=== PATIENT | male | born 1965 | race Two or more races ===

== ENCOUNTER 2022-12-10 06:56 | Outpatient (REF) | payer OTHER, SELFPAY ==
[2022-12-10 07:09] LABS: MANUAL DIFF FLAG NO
[2022-12-10 07:27] LABS: Basophils Absolute Auto 0.1 X10*3/uL (0.0-0.2); Basophils Percent Auto 0.8 % (0-2); Eosinophils Absolute Auto 0.2 X10*3/uL (0.0-0.4); Eosinophils Percent Auto 2.6 % (0-4); Hematocrit 35.9 % (42.0-52.0); Hemoglobin 11.7 g/dl (14.0-18.0); Imm Gran Abs Auto 0.01 X10*3/uL (0.00-0.03); Imm Gran Pct Auto 0.2 % (0.0-0.4); Lymphocytes Absolute Auto 1.5 X10*3/uL (1.2-4.9); Lymphocytes Percent Auto 23.1 % (20-40); Mean Corpuscular HGB Conc 32.6 g/dl (31.0-36.0); Mean Corpuscular Hemoglobin 29.2 pg (27.0-33.0); Mean Corpuscular Volume 89.5 fL (80.0-98.0); Mean Platelet Volume 9.8 fL (9.4-12.4); Monocytes Absolute Auto 0.4 X10*3/uL (0.1-1.2); Monocytes Percent Auto 6.4 % (2-11); Neutrophils Absolute Auto 4.3 x10*3/uL (2.0-8.3); Neutrophils Percent Auto 66.9 % (45-73); Platelet Count 227 X10*3/uL (160-400); Red Blood Count 4.01 X10*6/uL (4.60-5.80); Red Cell Distribution Width 12.9 % (11.0-16.0); White Blood Count 6.4 X10*3/uL (4.8-10.8)
[2022-12-10 07:45] LABS: Estimated Average Glucose 171 mg/dL; Hemoglobin A1c % 7.6 %
[2022-12-10 08:15] LABS: PSA,Total (Free>4and<10) 0.47 ng/mL (0.00-4.00); TSH reflex Free T4 1.85 uIU/mL (0.32-4.0)
[2022-12-10 08:53] LABS: Creatinine Urine 198.81 mg/dL; Microalbum/Creatinine Ratio Ur 91.5 ug/mg cr
[2022-12-10 09:10] LABS: Alanine Aminotransferase 16 U/L (0-40); Albumin Level 4.3 g/dL (3.5-5.0); Alkaline Phosphatase 76 U/L (39-117); Anion Gap 15 (12-20); Aspartate Amino Transferase 21 U/L (5-37); Bilirubin Total 0.3 mg/dL (0.0-1.0); Blood Urea Nitrogen 31 mg/dL (9-16); Carbon Dioxide 20 mmol/L (22-29); Chloride 112 mmol/L (96-108); Cholesterol 194 mg/dL; Estimated Glomerular Filt Rate 45; Glucose Random 163 mg/dL (60-115); HDL Cholesterol 27 mg/dL; LDL Cholesterol Calculated 97 mg/dl; Sodium 141 mmol/L (135-145); Total Protein 6.9 g/dL (6.5-8.0); Triglycerides 353 mg/dL
[2022-12-10 09:25] LABS: Potassium 6.3 mmol/L (3.3-5.1)
== END 2022-12-10 06:57 | disposition home or self-care (01) ==
LOC: HO.LAB 06:56
PROVIDERS: PCP Internal Medicine; Visit Provider Internal Medicine
DX: E11.65 Type 2 diabetes mellitus with hyperglycemia (principal); E78.00 Pure hypercholesterolemia, unspecified; I10 Essential (primary) hypertension; D64.9 Anemia, unspecified; Z13.29 Encounter for screening for other suspected endocrine disorder; Z12.5 Encounter for screening for malignant neoplasm of prostate
CPT/HCPCS: 36415; 80053; 80061; 82043; 83036; 84153; 84443; 85025

== ENCOUNTER 2022-12-10 15:58 | Emergency (ER) | payer OTHER, SELFPAY ==
[2022-12-10 16:00] VITALS: BP 174/76; PULSE 98; RESP 18; TEMP 36.3; O2SAT 99; BMI 32.5
--- NOTE | 2022-12-10 16:00 | ED_ITS ---
HPI - General Adult General Chief complaint: Recheck/Abnormal Lab/Rx Stated complaint: Sent by for Potassium Time Seen by Provider: 12/10/22 16:40 Source: patient Mode of arrival: ambulatory Limitations: no limitations History of Present Illness HPI narrative: Patient is 57 years or with history of diabetes and hypertension and high cholesterol sent by the PCP for potassium of 6.3 in the labs done pre physical. Patient denies any complaints no urinary complaints no abdominal pain no nausea no vomiting no muscle cramps no palpitation Related Data Previous Rx's Medication Instructions Recorded blood-glucose meter (FreeStyle #1 ea 06/01/20 Lite Meter kit) gabapentin 300 mg capsule 300 mg PO TID #90 caps 05/09/22 glipizide 5 mg tablet, extended 5 mg PO DAILY 90 days #90 tabs 05/09/22 release 24 hr blood pressure monitor (Blood #1 ea 10/10/22 Pressure Kit) lisinopril 20 1 tab PO DAILY #30 tabs 10/10/22 mg-hydrochlorothiazide 12.5 mg tablet metformin 500 mg tablet 1,000 mg PO BID 90 days #360 tabs 10/20/22 Allergies Allergy/AdvReac Type Severity Reaction Status Date / Time Sulfa (Sulfonamide Allergy Unknown LIP Verified 12/10/22 16:09 Antibiotics) SWELLING [SULFA (SULFONAMIDE ANTIBIOTICS)] Review of Systems Review of Systems: Yes all other systems are reviewed and are negative PMFSH Past Medical History Medical History Diabetic neuropathy Hypercholesterolemia Obesity (BMI 30-39.9) Type 2 diabetes mellitus with hyperglycemia Surgical History History of cataract surgery Umbilical hernia Family History Family History Father Brain aneurysm Mother No problems noted. Brother No problems noted. Brother No problems noted. Sister No problems noted. Sister No problems noted. Sister Mental illness in member of household Son No problems noted. Son No problems noted. Daughter No problems noted. Other Mental health disorder Social History Social History Housing: House Alcohol intake: current Alcohol intake frequency: holidays/special occasions only Patient Tobacco Use Status: Never used Tobacco Smoked in Last 30 Days: No e-Cigarette/Vaping Use: Never Used Second Hand Smoke Exposure: No Use of substances other than those prescribed or required for medical reasons: No Advance Directives: No Advance Directives Information Provided: Yes service: No Cognitive needs: No Hearing needs: No Vision needs: No Physical Exam ED Vital Signs: Vital Signs - 24 hr 12/10/22 16:00 12/10/22 17:54 Temperature 97.3 F Pulse Rate 98 92 Respiratory Rate 18 15 Blood Pressure 174/76 H Pulse Oximetry 99 96 Oxygen Delivery Method Room Air Room Air BMI result Body Mass Index 32.5 Appearance: Alert. Oriented X3. No acute distress. Eyes: PERRLA, No Nystagmus ENT: Pharynx normal. Oral Mucosa moist Neck: Normal inspection. Neck supple. CVS: Normal heart rate and rhythm. Pulses normal. Respiratory: No respiratory distress. Equal air entry bilateral, no wheezing/rales/rhonchi Abdomen: Soft and nontender. Bowel sounds are present, no mass palpable, no CVA tenderness Skin: Skin warm and dry. Normal skin color. Normal skin turgor. Extremities: No lower extremity edema. No calf tenderness Neuro: Oriented X 3. No motor deficit. No sensory deficit.No cerebellar signs , cranial nerves II-XII intact Course Course Course Narrative: RME performed by Alise Sarmiento PA-C. Patient is a 57 year old assigned male at presenting to the emergency department with an elevated potassium. Patient's CBC and CMP were drawn today. Patient's CMP showed an eleavted potassium of 6.3. Patient states that he has been eating a lot of dark leafy green vegetables for months to help his diabetes. Patient placed back in the waiting room pending room availability and results. Medications Administered Discontinued Medications Generic Name Dose Route Start Last Admin Trade Name Freq PRN Reason Stop Dose Admin Sodium Chloride 1,000 mls @ 999 mls/hr 12/10/22 17:32 12/10/22 18:49 Ns IV 12/10/22 18:32 Infused .Q1H1M ONE Infusion Calcium Gluconate 1 gm in 50 mls @ 50 mls/hr 12/10/22 17:32 12/10/22 18:48 Calcium Gluconate IV 12/10/22 18:31 Infused ONCE ONE Infusion Sodium Zirconium Cyclosilicate 10 gm 12/10/22 17:32 12/10/22 17:48 Sodium Zirconium Cyclosilicate 10 Gm Powd.Pack PO 12/10/22 17:33 10 gm ONCE ONE Administration Medical Decision Making Medical Decision Making [facility] Narrative: Patient with slightly elevated BUN/creatinine and potassium without any EKG changes on metformin and glipizide for diabetes and lisinopril with hydrochlorothiazide for blood pressure previous labs were done 2 years ago at that time kidney function were stable with creatinine of 1.18. Patient will be seeing his PCP in 2 days advised to stop metformin for now given dose of glipizide and follow-up with PCP Lab Data [facility] Lab Attestation statement: I reviewed the patient's lab results. 12/10/22 16:25 12/10/22 16:25 Labs: Lab Results 12/10/22 12/10/22 Range/Units 16:25 16:25 WBC 5.1 (4.8-10.8) X10*3/uL RBC 3.85 L (4.60-5.80) X10*6/uL Hgb 11.3 L (14.0-18.0) g/dl Hct 33.9 L (42.0-52.0) % MCV 88.1 (80.0-98.0) fL MCH 29.4 (27.0-33.0) pg MCHC 33.3 (31.0-36.0) g/dl RDW 13.0 (11.0-16.0) % Plt Count 210 (160-400) X10*3/uL MPV 9.7 (9.4-12.4) fL Immature Gran % (Auto) 0.2 (0.0-0.4) % Neut % (Auto) 67.1 (45-73) % Lymph % (Auto) 23.2 (20-40) % Rock % (Auto) 6.3 (2-11) % Eos % (Auto) 2.2 (0-4) % Baso % (Auto) 1.0 (0-2) % Lymph # (Auto) 1.2 (1.2-4.9) X10*3/uL Rock # (Auto) 0.3 (0.1-1.2) X10*3/uL Eos # (Auto) 0.1 (0.0-0.4) X10*3/uL Baso # (Auto) 0.1 (0.0-0.2) X10*3/uL Abs Immat Gran (auto) 0.01 (0.00-0.03) X10*3/uL Absolute Neuts (auto) 3.4 (2.0-8.3) x10*3/uL Absolute Nucleated RBC 0.000 (0.0-0.012) X10*3/uL Nucleated RBC % (auto) 0.0 (0.0-0.2) /100WBC Sodium 140 (135-145) mmol/L Potassium 5.6 H (3.3-5.1) mmol/L Chloride 112 H (96-108) mmol/L Carbon Dioxide 21 L (22-29) mmol/L Anion Gap 13 (12-20) BUN 30 H (9-16) mg/dL Creatinine 1.53 H (0.5-1.4) mg/dL Estim Creat Clear Calc 65.4 Estimated GFR 47 Random Glucose 122 H (60-115) mg/dL Calcium 9.2 (8.4-10.2) mg/dL Magnesium 1.9 (1.6-2.6) mg/dL Total Bilirubin 0.3 (0.0-1.0) mg/dL AST 15 (5-37) U/L ALT 16 (0-40) U/L Alkaline Phosphatase 66 (39-117) U/L Total Protein 7.1 (6.5-8.0) g/dL Albumin 4.6 (3.5-5.0) g/dL Independent Interpretation Interpretation: Normal sinus rhythm left axis deviation heart rate 93 beats per minute acute ST wave changes no acute ischemic Discharge Plan Discharge Clinical Impression: Acute hyperkalemia, Acute renal failure superimposed on chronic kidney disease Patient Disposition: Home, Self-Care Instructions: Acute Kidney Injury (DC), Chronic Kidney Disease (ED) Additional Instructions: Drink plenty of fluids Avoid banana/orange juice or any food containing high potassium Stop metformin as the kidneys are weak at this time Increase the dose of glipizide 10 mg daily Follow-up with your PCP in 2 days to recheck your potassium Prescriptions: No Action metformin 500 mg tablet 1,000 mg PO BID 90 Days Qty: 360 1RF (DME) blood-glucose meter [FreeStyle Lite Meter] Kit See Rx Instructions .ROUTE .MEDSUPPLY Qty: 1 0RF Rx Instructions: As directed check the BS QD lisinopril-hydrochlorothiazide 20-12.5 mg tablet 1 tab PO DAILY Qty: 30 4RF (DME) blood pressure monitor [Blood Pressure Kit] Kit See Rx Instructions .ROUTE .MEDSUPPLY Qty: 1 0RF Rx Instructions: As directed gabapentin 300 mg capsule 300 mg PO TID Qty: 90 3RF glipizide 5 mg tablet extended release 24hr 5 mg PO DAILY 90 Days Qty: 90 2RF
--- NOTE | 2022-12-10 16:03 | ECG_ITS ---
Test Reason : elevated potassium Blood Pressure : / mmHG Vent. Rate : 093 BPM Atrial Rate : 093 BPM P-R Int : 154 ms QRS Dur : 078 ms QT Int : 338 ms P-R-T Axes : 015 -48 014 degrees QTc Int : 420 ms Normal sinus rhythm Left axis deviation Inferior infarct (cited on or before 05-OCT-2018) Anterolateral infarct , age undetermined Abnormal ECG When compared with ECG of 08-OCT-2018 11:27, Anterolateral infarct is now Present Referred By: Alise Sarmiento Electronically Signed By:Lamonte Hughes
--- NOTE | 2022-12-10 16:24 | PC.NURSE ---
pt comes to ER after having blood work this morning. Office advised him to come to ER bc elevated K. IV inserted, labs drawn, cardiac shubham on. NO pain or distress. Pt AOX3, will CTM
[2022-12-10 16:29] LABS: MANUAL DIFF FLAG NO
[2022-12-10 16:32] LABS: Basophils Absolute Auto 0.1 X10*3/uL (0.0-0.2); Eosinophils Absolute Auto 0.1 X10*3/uL (0.0-0.4); Eosinophils Percent Auto 2.2 % (0-4); Hematocrit 33.9 % (42.0-52.0); Hemoglobin 11.3 g/dl (14.0-18.0); Imm Gran Abs Auto 0.01 X10*3/uL (0.00-0.03); Imm Gran Pct Auto 0.2 % (0.0-0.4); Lymphocytes Absolute Auto 1.2 X10*3/uL (1.2-4.9); Lymphocytes Percent Auto 23.2 % (20-40); Mean Corpuscular HGB Conc 33.3 g/dl (31.0-36.0); Mean Corpuscular Hemoglobin 29.4 pg (27.0-33.0); Mean Corpuscular Volume 88.1 fL (80.0-98.0); Mean Platelet Volume 9.7 fL (9.4-12.4); Monocytes Absolute Auto 0.3 X10*3/uL (0.1-1.2); Monocytes Percent Auto 6.3 % (2-11); Neutrophils Absolute Auto 3.4 x10*3/uL (2.0-8.3); Neutrophils Percent Auto 67.1 % (45-73); Platelet Count 210 X10*3/uL (160-400); Red Blood Count 3.85 X10*6/uL (4.60-5.80); White Blood Count 5.1 X10*3/uL (4.8-10.8)
[2022-12-10 16:53] LABS: Alanine Aminotransferase 16 U/L (0-40); Albumin Level 4.6 g/dL (3.5-5.0); Alkaline Phosphatase 66 U/L (39-117); Anion Gap 13 (12-20); Aspartate Amino Transferase 15 U/L (5-37); Bilirubin Total 0.3 mg/dL (0.0-1.0); Blood Urea Nitrogen 30 mg/dL (9-16); Calcium 9.2 mg/dL (8.4-10.2); Carbon Dioxide 21 mmol/L (22-29); Chloride 112 mmol/L (96-108); Creatinine Clr Calc Pharmacy 65.4; Estimated Glomerular Filt Rate 47; Glucose Random 122 mg/dL (60-115); Magnesium 1.9 mg/dL (1.6-2.6); Potassium 5.6 mmol/L (3.3-5.1); Sodium 140 mmol/L (135-145); Total Protein 7.1 g/dL (6.5-8.0)
[2022-12-10] MEDS: Calcium Gluconate/NaCl,Iso-Osm 1 GM/50 ML PLAST..BAG IV (17:48)
[2022-12-10] MEDS: Sodium Zirconium Cyclosilicate 10 GM POWD.PACK PO (17:48)
[2022-12-10] MEDS: 0.9 % Sodium Chloride 1,000 ML 999 ML IV (17:48)
--- NOTE | 2022-12-10 17:53 | PC.NURSE ---
medicated per SEP. NSR on monitor.
[2022-12-10 17:54] VITALS: PULSE 92; RESP 15; O2SAT 96
== END 2022-12-10 19:24 | disposition home or self-care (01) ==
PROVIDERS: Physician Assistant Medical; Emergency Provider Internal Medicine; PCP Internal Medicine
DX: E87.5 Hyperkalemia (principal); E11.22 Type 2 diabetes mellitus with diabetic chronic kidney disease; I12.9 Hypertensive chronic kidney disease with stage 1 through stage 4 chronic kidney disease, or unspecified chronic kidney disease; N18.9 Chronic kidney disease, unspecified; N17.9 Acute kidney failure, unspecified
CPT/HCPCS: 36415; 80053; 83735; 85025; 93005; 96361; 96365; 99284; 99285; J0613

== ENCOUNTER 2022-12-31 06:59 | Outpatient (REF) | payer OTHER, SELFPAY ==
[2022-12-31 08:26] LABS: Alanine Aminotransferase 13 U/L (0-40); Albumin Level 4.4 g/dL (3.5-5.0); Alkaline Phosphatase 77 U/L (39-117); Anion Gap 15 (12-20); Aspartate Amino Transferase 13 U/L (5-37); Bilirubin Total 0.4 mg/dL (0.0-1.0); Blood Urea Nitrogen 23 mg/dL (9-16); Calcium 9.5 mg/dL (8.4-10.2); Carbon Dioxide 24 mmol/L (22-29); Chloride 107 mmol/L (96-108); Estimated Glomerular Filt Rate 47; Glucose Random 175 mg/dL (60-115); Potassium 5.7 mmol/L (3.3-5.1); Sodium 140 mmol/L (135-145); Total Protein 7.2 g/dL (6.5-8.0)
[2022-12-31 08:48] LABS: Creatinine Urine 201.64 mg/dL
== END 2022-12-31 07:00 | disposition home or self-care (01) ==
LOC: HO.LAB 06:59
PROVIDERS: PCP Internal Medicine; Visit Provider Internal Medicine
DX: E11.65 Type 2 diabetes mellitus with hyperglycemia (principal); E87.5 Hyperkalemia
CPT/HCPCS: 36415; 80053

== ENCOUNTER 2023-04-11 11:38 | Outpatient (AMB) | payer OTHER, SELFPAY ==
[2023-04-11 11:39] VITALS: BP 160/86; PULSE 100; O2SAT 100; BMI 30.6
--- NOTE | 2023-04-11 11:39 | A.OFFPC_ITS ---
Vital Signs 04/11/23 11:39 Height 5 ft 10 in Weight 213 lb BMI 30.6 BP 160/86 H Blood Pressure Location Lt brachial Position Sitting Pulse 100 Pulse Source Pulse Oximeter Temp Source Skin Pulse Oximetry (%) 100 Oxygen Delivery Method Room Air Intake Visit Reasons: DM , HTN , CKD Allergies Sulfa (Sulfonamide Antibiotics) [SULFA (SULFONAMIDE ANTIBIOTICS)] Allergy (Unknown, Verified 04/11/23 11:39) LIP SWELLING Lisinopril Adverse Reaction (Intermediate, Uncoded 04/11/23 11:39) Hyperkalemia Tobacco use date assessed: 04/11/23 Dental Screening Dental Screen Date: 04/11/23 Did you have a dental visit in the last 12 months?: No Did you have a dental problem in the last 6 months where you did not have access to dental care?: No HPI DM , HTN , CKD HPI Details 58-year-old obese male with diabetes eula litus hypercholesterolemia chronic kidney disease and hypertension last seen in January 2023. Eye exam from [place] [facility] seen. cold - gettng better 3 days ago. no pain on swallowing [facility] Medical History Diabetic neuropathy Hypercholesterolemia Obesity (BMI 30-39.9) Type 2 diabetes mellitus with hyperglycemia Surgical History History of cataract surgery Umbilical hernia Family History Father Brain aneurysm Mother No problems noted. Brother No problems noted. Brother No problems noted. Sister No problems noted. Sister No problems noted. Sister Mental illness in member of household Son No problems noted. Son No problems noted. Daughter No problems noted. Other Mental health disorder Social History Housing: House Alcohol intake: current Alcohol intake frequency: holidays/special occasions only Patient Tobacco Use Status: Never used Tobacco e-Cigarette/Vaping Use: Never Used Second Hand Smoke Exposure: No service: No Cognitive needs: No Hearing needs: No Vision needs: No Questionnaire Thrive Questionnaire Date Thrive assessed: 10/10/22 AUDIT C Alcohol Use Questionnaire (AUDIT-C) 1. How often do you have a drink containing alcohol?: Monthly or less 2. How many drinks containing alcohol do you have on a typical day when you are drinking?: 1 or 2 3. How often do you have six or more drinks on one occasion?: Never Total Score: 1 KERI-7 AMB Questionnaire KERI-7 Date KERI - 7 assessed: 10/10/22 Feeling nervous, anxious, or on edge: 0 = Not at all Not being able to stop or control worryin = Not at all Worrying too much about different things: 0 = Not at all Trouble relaxin = Not at all Being so restless that it is hard to sit still: 0 = Not at all Becoming easily annoyed or irritable: 0 = Not at all Feeling afraid as if something awful might happen: 0 = Not at all Total KERI-7 score (0-4 normal; 5-9 mild; 10-14 moderate; 15-21 severe): 0 Source: Developed by Drs. Anil Ruby, Lucille Hyatt, Luis Wilkins and colleagues, with an educational yevgeniy from [employer]. Physical exam (Primary Care) Vital Signs: Last Vital Signs Pulse 100 04/11/23 11:39 BP 160/86 H 04/11/23 11:39 Pulse Ox 100 04/11/23 11:39 Oxygen Delivery Method Room Air 04/11/23 11:39 BMI result Body Mass Index 30.6 Tobacco/Smoking Status: Tobacco use Status Tobacco use date assessed 04/11/23 04/11/23 11:40 Patient Tobacco Use Status Never used Tobacco 04/11/23 11:40 e-Cigarette/Vaping Use Never Used 04/11/23 11:40 Thrive Assessment: Date of Thrive Assessment Date Thrive assessed 10/10/22 04/11/23 11:40 Const General: alert; No acute distress Eyes Conjunctivae: conjunctivae normal Resp Auscultation: clear to auscultation bilaterally Cardio Rate: regular rate Rhythm: regular rhythm GI Inspection: Yes normal to inspection Extrem General: Yes normal to inspection and No edema Results AMB Hemoglobin A1c AMB Hemoglobin A1c 6.7 % Last Edit by HALLE Gonzalez on 04/11/23 11:58 Results Reviewed Results Reviewed: Laboratory Last Values Hgb A1c (Clinic) 6.7 % (4.0-6.0) H 04/11/23 11:41 Assessment and Plan Assessment & Plan (1) Type 2 diabetes mellitus with hyperglycemia: Comment: Breanna Code(s): E11.65 - Type 2 diabetes mellitus with hyperglycemia Qualifiers: Diabetes mellitus terminal carman insulin use: without chcf use Qualified Code(s): E11.65 - Type 2 diabetes mellitus with hyperglycemia Plan: Decrease the amount of carbohydrate intake, pasta, bread, rice and potatoes are all sugar and that is aside from all the sweet stuff, remember that fruits are good but they are Sweet also. Patient is presently on glipizide 5 mg once a day and metformin 1000 twice a day LDL goal of less than 6.5. increase glipizide (2) Hypercholesterolemia: Code(s): E78.00 - Pure hypercholesterolemia, unspecified Plan: Avoid fried foods, chicken skin, eggs, butter margarine, pastries and meat. Be it pork or beef they have a lot of cholesterol LDL goal of less than 100 and triglyceride less than 150 November 2022 last blood work. repeat testing as he has high Trigly (3) Obesity (BMI 30-39.9): Code(s): E66.9 - Obesity, unspecified Plan: Diet and exercise (4) Anemia: Code(s): D64.9 - Anemia, unspecified Qualifiers: Anemia type: unspecified type Qualified Code(s): D64.9 - Anemia, unspecified Plan: Due to chronic kidney disease patient has the anemia continuing to monitor (5) Chronic kidney disease: Code(s): N18.9 - Chronic kidney disease, unspecified Plan: Patient has been referred to Nephrology- 04/2023 (6) Hypertension: Code(s): I10 - Essential (primary) hypertension Plan: Continue with blood pressure medication. Decrease salt intake and exercise on amlodipine 5 mg once a day and hydrochlorothiazide 12.5 mg once a day cannot take an Suresh inhibitor. Due to hyperkalemia. increase amlodipine. will be seeing dailyherve next month (7) Colon cancer screening: Code(s): Z12.11 - Encounter for screening for malignant neoplasm of colon Plan: referral done to GI Orders: Orders AMB Hemoglobin A1c Today E11.65 - Type 2 diabetes mellitus with hyperglycemia Lipid Panel 3 Months E78.00 - Pure hypercholesterolemia, unspecified, E78.1 - Pure hyperglyceridemia Comprehensive Met. Panel 3 Months E78.1 - Pure hyperglyceridemia Hemoglobin A1c 3 Months E78.1 - Pure hyperglyceridemia Referrals Gastroenterology Referral Z12.11 - Encounter for screening for malignant neoplasm of colon Medications: New blood pressure monitor (Blood Pressure Kit) As directed 1 ea 0RF I10 - Essential (primary) hypertension Changed From glipizide ER 5 mg PO DAILY 90 days 90 tabs 2RF E11.65 - Type 2 diabetes mellitus with hyperglycemia To glipizide ER 5 mg PO BID 90 days 180 tabs 2RF E11.65 - Type 2 diabetes mellitus with hyperglycemia From amlodipine 5 mg PO DAILY 90 tabs 3RF I10 - Essential (primary) hypertension To amlodipine 10 mg PO DAILY 30 tabs 3RF I10 - Essential (primary) hypertension Coding Level of Care Code Est Pt Level 4 (25128) Diagnoses Type 2 diabetes mellitus with hyperglycemia, without long-term current use of insulin E11.65 Diabetes mellitus terminal carman insulin use: without chcf use Hypercholesterolemia E78.00 Obesity (BMI 30-39.9) E66.9 Anemia, unspecified type D64.9 Anemia type: unspecified type Chronic kidney disease N18.9 Hypertension I10 Colon cancer screening Z12.11
== END 2023-04-11 12:32 | disposition home or self-care (01) ==
PROVIDERS: PCP Internal Medicine; Visit Provider Internal Medicine
DX: E11.65 Type 2 diabetes mellitus with hyperglycemia (principal); I12.9 Hypertensive chronic kidney disease with stage 1 through stage 4 chronic kidney disease, or unspecified chronic kidney disease; N18.9 Chronic kidney disease, unspecified; Z68.30 Body mass index [BMI] 30.0-30.9, adult; E78.00 Pure hypercholesterolemia, unspecified; E66.9 Obesity, unspecified; D64.9 Anemia, unspecified
CPT/HCPCS: 83036; 99214

== ENCOUNTER 2023-05-08 19:12 | Emergency (ER) | payer OTHER, SELFPAY ==
--- NOTE | ~2023-05-08 | XR_ITS ---
EXAMINATION: XR KNEE, LEFT CLINICAL INFORMATION: Erythema and swelling. COMPARISON: None available. TECHNIQUE: AP, lateral, and both oblique views of the left knee. FINDINGS: Bony alignment and mineralization are normal. The lateral, medial and patellofemoral joint space compartments are well-maintained. No fracture or dislocation is seen. There is a small joint effusion. No foreign body is seen. XR/XR knee LT 4V IMPRESSION: 1. No left knee fracture, dislocation or unusual degenerative change is seen. 2. There is a small left knee joint effusion.
[2023-05-08 19:42] VITALS: BP 165/81; PULSE 104; RESP 20; TEMP 36.8; O2SAT 99; BMI 31.6
--- NOTE | 2023-05-08 19:46 | ED.GENADULT ---
HPI - General Adult General Chief complaint: Extremity Injury, Lower Stated complaint: LT Knee pain Time Seen by Provider: 05/08/23 22:54 Source: patient and family Mode of arrival: ambulatory Limitations: no limitations History of Present Illness HPI narrative: 58 yo male with PMH of HTN, CKD, DM, HLD here with c/o picking a pimple on his left knee a couple of days ago and now the area is red and hot and painful no systemic symptoms can bed knee no hx of MRSA. He has not had this before. He thought it was an ingrown hair MD complaint: leg rash Onset (ago): day(s) (2) Location: left and lower extremity Radiation: non-radiation Severity: mild Quality: dull Pain Consistency: intermittent Relieving factors: none Exacerbating factors: other (palpation) Associated symptoms: rash Treatments prior to arrival: none Related Data Previous Rx's Medication Instructions Recorded blood-glucose meter (FreeStyle #1 ea 06/01/20 Lite Meter kit) gabapentin 300 mg capsule 300 mg PO TID #90 caps 05/09/22 blood pressure monitor (Blood #1 ea 10/10/22 Pressure Kit) hydrochlorothiazide 12.5 mg tablet 12.5 mg PO DAILY #90 tabs 01/27/23 amlodipine 10 mg tablet 10 mg PO DAILY #30 tabs 04/11/23 blood pressure monitor (Blood #1 ea 04/11/23 Pressure Kit) glipizide 5 mg tablet, extended 5 mg PO BID 90 days #180 tabs 04/11/23 release 24 hr metformin 500 mg tablet 1,000 mg (2 x 500 mg) PO BID 90 04/19/23 days #360 tabs cephalexin 500 mg capsule 500 mg PO QID 7 days #28 caps 05/08/23 doxycycline hyclate 100 mg capsule 100 mg PO BID 7 days #14 caps 05/08/23 Allergies Allergy/AdvReac Type Severity Reaction Status Date / Time Sulfa (Sulfonamide Allergy Unknown LIP Verified 04/11/23 11:39 Antibiotics) SWELLING [SULFA (SULFONAMIDE ANTIBIOTICS)] Lisinopril AdvReac Intermediate Hyperkalemi Uncoded 04/11/23 11:39 a Review of Systems Review of Systems: Constitutional : No Fever, No Chills Cardiovascular : No Chest Pain, No SOB Respiratory : No Cough, No Sputum Gastrointestinal : No Nausea, No Vomiting, No Diarrhea, No abdominal Pain Genitourinary : No Dysuria, No Hematuria Musculoskeletal : no joint pain, No Myalgias, No Joint Swelling Skin : No Skin Lesions, positive skin rash Neuro : No Weakness, No Numbness, No Headache Psych : No Anxiety, No Depression All other systems reviewed and are negative [facility] Past Medical History Attestation statement: The following information was validated with the patient. Source: old records reviewed Medical History Obesity (BMI 30-39.9) Hypercholesterolemia Diabetic neuropathy Type 2 diabetes mellitus with hyperglycemia Surgical History History of cataract surgery Umbilical hernia Family History Family History Father Brain aneurysm Mother No problems noted. Brother No problems noted. Brother No problems noted. Sister No problems noted. Sister No problems noted. Sister Mental illness in member of household Son No problems noted. Son No problems noted. Daughter No problems noted. Other Mental health disorder Social History Social History Housing: House Alcohol intake: current Alcohol intake frequency: holidays/special occasions only Patient Tobacco Use Status: Never used Tobacco Smoked in Last 30 Days: No e-Cigarette/Vaping Use: Never Used Second Hand Smoke Exposure: No Use of substances other than those prescribed or required for medical reasons: No Advance Directives: No Advance Directives Information Provided: No service: No Cognitive needs: No Hearing needs: No Vision needs: No Physical Exam ED Vital Signs: Vital Signs - 24 hr 05/08/23 19:42 Temperature 98.3 F Pulse Rate 104 H Respiratory Rate 20 Blood Pressure 165/81 H Pulse Oximetry 99 Oxygen Delivery Method Room Air BMI result Body Mass Index 31.6 Appearance: Alert. Oriented X3. No acute distress. Eyes: Pupils equal, round and reactive to light. ENT: Pharynx normal. Neck: Normal inspection. Neck supple. CVS: Normal heart rate and rhythm. Pulses normal. Respiratory: No respiratory distress. Breath sounds normal. Abdomen: Soft and nontender. Skin: Skin warm and dry. Normal skin color. Normal skin turgor. Extremities: left leg anterior ulrich small drained boil no fluctuance ttp or erythema/edema. L upper lateral patella red tender warm area but no fluctuance no joint effusion normal ROM no pain no signs of septic joint Neuro: Oriented X 3. No motor deficit. No sensory deficit. Course Course Course Narrative: RME; 58 yold male presents to the ED for left knee redness and swelling near area of ingrown hair on knee. Patient denies any recent trauma. Has flexion and extension of knee but with pain. labs and xray ordered Medications Administered Discontinued Medications Generic Name Dose Route Start Last Admin Trade Name Willie PRN Reason Stop Dose Admin Cephalexin HCl 500 mg 05/08/23 23:13 05/08/23 23:30 Cephalexin 500 Mg Capsule PO 05/08/23 23:14 500 mg ONCE ONE Administration Doxycycline Monohydrate 100 mg 05/08/23 23:13 05/08/23 23:30 Doxycycline Monohydrate 100 Mg Capsule PO 05/08/23 23:14 100 mg ONCE ONE Administration Medical Decision Making Medical Decision Making [facility] Narrative: 58 yo male with PMH of HTN, CKD, DM, HLD here with c/o L knee area swelling redness and cellulitis has no joint effusoin on exam no abscess and normal ROM doubt septic joint he has no systemic symptoms VS stable other than mild tachycardia at this time will start on oral medications and trial PO regimen. Will give precautions to return. Differential Diagnosis Differential Diagnoses: The differential diagnosis associated with the presentation includes celluitis, MRSA Admission/Observation not toxic, no signs of septic joint stable for DC Lab Data [facility] Lab Attestation statement: I reviewed the patient's lab results. 05/08/23 19:59 05/08/23 19:59 Labs: Lab Results 05/08/23 Range/Units 19:59 WBC 7.2 (4.8-10.8) X10*3/uL RBC 3.76 L (4.60-5.80) X10*6/uL Hgb 10.8 L (14.0-18.0) g/dl Hct 33.1 L (42.0-52.0) % MCV 88.0 (80.0-98.0) fL MCH 28.7 (27.0-33.0) pg MCHC 32.6 (31.0-36.0) g/dl RDW 12.4 (11.0-16.0) % Plt Count 221 (160-400) X10*3/uL MPV 9.3 L (9.4-12.4) fL Immature Gran % (Auto) 0.4 (0.0-0.4) % Neut % (Auto) 69.2 (45-73) % Lymph % (Auto) 20.0 (20-40) % Redwood % (Auto) 7.3 (2-11) % Eos % (Auto) 2.1 (0-4) % Baso % (Auto) 1.0 (0-2) % Lymph # (Auto) 1.5 (1.2-4.9) X10*3/uL Redwood # (Auto) 0.5 (0.1-1.2) X10*3/uL Eos # (Auto) 0.2 (0.0-0.4) X10*3/uL Baso # (Auto) 0.1 (0.0-0.2) X10*3/uL Abs Immat Gran (auto) 0.03 (0.00-0.03) X10*3/uL Absolute Neuts (auto) 5.0 (2.0-8.3) x10*3/uL Absolute Nucleated RBC 0.000 (0.0-0.012) X10*3/uL Nucleated RBC % (auto) 0.0 (0.0-0.2) /100WBC ESR 55 H (0-15) MM/HR Sodium 140 (135-145) mmol/L Potassium 5.0 (3.3-5.1) mmol/L Chloride 103 (96-108) mmol/L Carbon Dioxide 24 (22-29) mmol/L Anion Gap 18 (12-20) BUN 19 H (9-16) mg/dL Creatinine 1.40 (0.5-1.4) mg/dL Estim Creat Clear Calc 69.7 Estimated GFR 52 Random Glucose 163 H (60-115) mg/dL Calcium 9.1 (8.4-10.2) mg/dL Total Bilirubin 0.3 (0.0-1.0) mg/dL AST 13 (5-37) U/L ALT 13 (0-40) U/L Alkaline Phosphatase 71 (39-117) U/L C-Reactive Protein 2.30 H (< or = 0.50) mg/dL Total Protein 7.7 (6.5-8.0) g/dL Albumin 4.3 (3.5-5.0) g/dL Independent Interpretation I performed an independent interpretation of an: Plain X-Ray Radiology Impression Discussion of test interpretation with radiology: I have reviewed the radiologist's reading. Independent Historian Clinical information obtained from an independent historian. History obtained from or confirmed by: Spouse External Record Review External record reviewed: Inpatient record Prescription Management I considered prescription management with: Antibiotic Discharge Plan Discharge Clinical Impression: Cellulitis Patient Disposition: Home, Self-Care Instructions: Cellulitis (ED) Additional Instructions: return for fevers, increased redness, swelling, inability to tolerate PO, weakness or any other concerns. take and finish all antibiotics you had mild anemia which is not new but please follow up with your primary care doctor and trend - I would repeat another blood count in 1 week On doxycycline, do not take pills immediately before going to bed and swallow pills with plenty of water. Avoid direct sunlight, iron, antacids, and Pepto Bismol. Call your provider if you develop new ringing in your ears, new problems hearing, dizziness, difficulty swallowing, rash, abdominal discomfort, nausea, or diarrhea.? On a cephalosporin?antibiotic, softer bowel movements are to be expected. Call your provider if you move your bowels more than 4 times a day, your bowel movements are almost all liquid, or you get a rash.?? Prescriptions: New doxycycline hyclate 100 mg capsule 100 mg PO BID 7 Days Qty: 14 0RF cephalexin 500 mg capsule 500 mg PO QID 7 Days Qty: 28 0RF No Action hydrochlorothiazide 12.5 mg tablet 12.5 mg PO DAILY Qty: 90 1RF metformin 500 mg tablet 1,000 mg PO BID 90 Days Qty: 360 1RF (DME) blood-glucose meter [FreeStyle Lite Meter] Kit See Rx Instructions .ROUTE .MEDSUPPLY Qty: 1 0RF Rx Instructions: As directed check the BS QD (DME) blood pressure monitor [Blood Pressure Kit] Kit See Rx Instructions .ROUTE .MEDSUPPLY Qty: 1 0RF Rx Instructions: As directed gabapentin 300 mg capsule 300 mg PO TID Qty: 90 3RF glipizide 5 mg tablet extended release 24hr 5 mg PO BID 90 Days Qty: 180 2RF (DME) blood pressure monitor [Blood Pressure Kit] Kit See Rx Instructions .ROUTE .MEDSUPPLY Qty: 1 0RF Rx Instructions: As directed amlodipine 10 mg tablet 10 mg PO DAILY Qty: 30 3RF Interventions: ED Discharge Assessment Last Done: 05/08/23 23:31 Discharge Date/Time: 05/08/23 23:36
[2023-05-08 20:03] LABS: MANUAL DIFF FLAG NO
[2023-05-08 20:05] LABS: Basophils Absolute Auto 0.1 X10*3/uL (0.0-0.2); Eosinophils Absolute Auto 0.2 X10*3/uL (0.0-0.4); Eosinophils Percent Auto 2.1 % (0-4); Hematocrit 33.1 % (42.0-52.0); Hemoglobin 10.8 g/dl (14.0-18.0); Imm Gran Abs Auto 0.03 X10*3/uL (0.00-0.03); Imm Gran Pct Auto 0.4 % (0.0-0.4); Lymphocytes Absolute Auto 1.5 X10*3/uL (1.2-4.9); Mean Corpuscular HGB Conc 32.6 g/dl (31.0-36.0); Mean Corpuscular Hemoglobin 28.7 pg (27.0-33.0); Mean Platelet Volume 9.3 fL (9.4-12.4); Monocytes Absolute Auto 0.5 X10*3/uL (0.1-1.2); Monocytes Percent Auto 7.3 % (2-11); Neutrophils Percent Auto 69.2 % (45-73); Platelet Count 221 X10*3/uL (160-400); Red Blood Count 3.76 X10*6/uL (4.60-5.80); Red Cell Distribution Width 12.4 % (11.0-16.0); White Blood Count 7.2 X10*3/uL (4.8-10.8)
[2023-05-08 20:18] LABS: Alanine Aminotransferase 13 U/L (0-40); Albumin Level 4.3 g/dL (3.5-5.0); Alkaline Phosphatase 71 U/L (39-117); Anion Gap 18 (12-20); Aspartate Amino Transferase 13 U/L (5-37); Bilirubin Total 0.3 mg/dL (0.0-1.0); Blood Urea Nitrogen 19 mg/dL (9-16); Calcium 9.1 mg/dL (8.4-10.2); Carbon Dioxide 24 mmol/L (22-29); Chloride 103 mmol/L (96-108); Creatinine Clr Calc Pharmacy 69.7; Estimated Glomerular Filt Rate 52; Glucose Random 163 mg/dL (60-115); Sodium 140 mmol/L (135-145); Total Protein 7.7 g/dL (6.5-8.0)
[2023-05-08 20:53] LABS: Erythrocyte Sedimentation Rate 55 MM/HR (0-15)
[2023-05-08] MEDS: cephALEXin 500 MG CAPSULE PO (23:30)
[2023-05-08] MEDS: Doxycycline Monohydrate 100 MG CAPSULE PO (23:30)
== END 2023-05-08 23:36 | disposition home or self-care (01) ==
PROVIDERS: Physician Assistant; Emergency Provider Emergency Medicine; PCP Internal Medicine
DX: L03.116 Cellulitis of left lower limb (principal); M25.562 Pain in left knee; R21 Rash and other nonspecific skin eruption; Z79.899 Other long term (current) drug therapy
CPT/HCPCS: 36415; 73564; 80053; 85025; 85652; 86140; 99283; 99284

== ENCOUNTER 2023-12-20 09:57 | Outpatient (AMB) | payer OTHER, SELFPAY ==
[2023-12-20 10:05] VITALS: BP 140/84; PULSE 89; O2SAT 98; BMI 33.7
--- NOTE | 2023-12-20 10:05 | MHC.PC.OV ---
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 Wheelchair Required: No Allergies Sulfa (Sulfonamide Antibiotics) [SULFA (SULFONAMIDE ANTIBIOTICS)] Allergy (Unknown, Verified 12/20/23 10:05) LIP SWELLING Lisinopril Adverse Reaction (Intermediate, Uncoded 12/20/23 10:05) Hyperkalemia Tobacco use date assessed: 12/20/23 Dental Screening Dental Screen Date: 04/11/23 HPI follow up HPI Details 58-year-old obese male with uncontrolled diabetes mellitus hypercholesterolemia chronic kidney disease hypertension last seen in 04/12/2023 patient is here for follow-up review of the notes ER visit for left knee cellulitis treated with doxycycline and cephalexin. Patient also sees Nephrology stage 3 chronic kidney disease [facility] Medical History Obesity (BMI 30-39.9) Hypercholesterolemia Diabetic neuropathy Type 2 diabetes mellitus with hyperglycemia Surgical History History of cataract surgery Umbilical hernia Family History Father Brain aneurysm Mother No problems noted. Brother No problems noted. Brother No problems noted. Sister No problems noted. Sister No problems noted. Sister Mental illness in member of household Son No problems noted. Son No problems noted. Daughter No problems noted. Other Mental health disorder Social History Housing: House Alcohol intake: current Alcohol intake frequency: holidays/special occasions only Patient Tobacco Use Status: Never used Tobacco e-Cigarette/Vaping Use: Never Used Second Hand Smoke Exposure: No service: No Cognitive needs: No Hearing needs: No Vision needs: No Questionnaire PHQ-9 Over the last 2 weeks, how often have you been bothered by any of the following problems? 1. Little interest or pleasure in doing things: not at all 2. Feeling down, depressed, or hopeless: not at all 3. Trouble falling or staying asleep, or sleeping too much: not at all 4. Feeling tired or having little energy: not at all 5. Poor appetite or overeating: not at all 6. Feeling bad about yourself - or that you are a failure or have let yourself or your family down: not at all 7. Trouble concentrating on things, such as reading the newspaper or watching television: not at all 8. Moving or speaking so slowly that other people could have noticed. Or the opposite - being so fidgety or restless that you have been moving around a lot more than usual: not at all 9. Thoughts that you would be better off or of hurting yourself in some way: not at all Total score: 0 Depression Screening Interpretation: Negative Depression Screening Done: Yes 74003 - PHQ-9 Billing: Yes Source: Developed by Drs. Anil Ruby, Lucille Hyatt, Luis Wilkins and colleagues, with an educational yevgeniy from [employer]. Thrive Questionnaire Date Thrive assessed: 12/20/23 I am a: Patient What is your living situation today?: I have a steady place to live Within the past 12 months, did the food you bought not last and you didn't have the money to get more?: Never true Within the past 12 months, did you worry whether your food would run out before you got money to buy more?: Never true Do you have trouble paying for medicines?: No Do you have trouble getting transportation to medical appointments?: No Do you have trouble paying your heating and electricity bill?: No Do you have trouble taking care of your child, family member or friend?: No Do you have trouble with day-to-day activities such as bathing, preparing meals, shopping, managing finances, etc.?: No Are you currently unemployed and looking for a job?: No Are you interested in more education?: No Please select the resources that you would like help with: None Currently or been in a relationship where the following occur: no concerns reported THRIVE Score: 0 AUDIT C Alcohol Use Questionnaire (AUDIT-C) 1. How often do you have a drink containing alcohol?: Monthly or less 2. How many drinks containing alcohol do you have on a typical day when you are drinking?: 1 or 2 3. How often do you have six or more drinks on one occasion?: Never Total Score: 1 KERI-7 AMB Questionnaire KERI-7 Date KERI - 7 assessed: 12/20/23 Feeling nervous, anxious, or on edge: 0 = Not at all Not being able to stop or control worryin = Not at all Worrying too much about different things: 0 = Not at all Trouble relaxin = Not at all Being so restless that it is hard to sit still: 0 = Not at all Becoming easily annoyed or irritable: 0 = Not at all Feeling afraid as if something awful might happen: 0 = Not at all Total KERI-7 score (0-4 normal; 5-9 mild; 10-14 moderate; 15-21 severe): 0 Source: Developed by Drs. Anil Ruby, Lucille Hyatt, Luis Wilkins and colleagues, with an educational yevgeniy from [employer]. KERI-7 Assessment Billing KERI-7 Assessment Tool: KERI-7 Assessment 07798 Physical exam (Primary Care) Vital Signs: Last Vital Signs Pulse 89 12/20/23 10:05 BP 140/84 H 12/20/23 10:05 Pulse Ox 98 12/20/23 10:05 Oxygen Delivery Method Room Air 12/20/23 10:05 BMI result Body Mass Index 33.7 Tobacco/Smoking Status: Tobacco use Status Tobacco use date assessed 12/20/23 12/20/23 10:06 Patient Tobacco Use Status Never used Tobacco 12/20/23 10:06 e-Cigarette/Vaping Use Never Used 12/20/23 10:06 PHQ-9: PHQ-9 Score PHQ-9: Total score 0 12/20/23 16:55 Depression Screening Interpretation: Negative Thrive Assessment: Date of Thrive Assessment Date Thrive assessed 12/20/23 12/20/23 10:06 Currently or been in a relationship where the following occur: no concerns reported Const General: alert; No acute distress Eyes Conjunctivae: conjunctivae normal Resp Auscultation: clear to auscultation bilaterally Cardio Rate: regular rate Rhythm: regular rhythm GI Inspection: Yes normal to inspection Extrem General: Yes normal to inspection and No edema Results AMB Hemoglobin A1c AMB Hemoglobin A1c 9.4 % Last Edit by HALLE Gonzalez on 12/20/23 10:40 Immunizations tetanus-diphtheria toxoids-Td 2 Lf unit-2 Lf unit/0.5 mL IM suspension Performing Provider: Ken Sanders MD [facility] Administered by: HALLE Gonzalez on 12/20/23 16:55 Dose Route Admin Location Dispensed Lot Number Expiration Date NDC 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 0.5 mL IM Left Deltoid 0.5 mL [id number] 09/02/24 [address]-8 [employer] VIS Given Date VIS Provided VIS Publication Date 12/20/23 Single Vaccine 21 Eligibility Eligibility Date Funding Source Not VFC Eligible 12/20/23 State funds Results Reviewed Results Reviewed: Laboratory Last Values Hgb A1c (Clinic) 9.4 % (4.0-6.0) H 12/20/23 09:54 Assessment and Plan Assessment & Plan (1) Type 2 diabetes mellitus with hyperglycemia: Comment: Breanna Code(s): E11.65 - Type 2 diabetes mellitus with hyperglycemia 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 Hemoglobin A1c goal of less than 6.5 patient on glipizide 5 mg once a day metformin a 1000 mg twice a day (2) Hypercholesterolemia: Code(s): E78.00 - Pure hypercholesterolemia, unspecified Plan: Avoid fried foods, chicken skin, eggs, butter margarine, pastries and meat. Be it pork or beef they have a lot of cholesterol LDL goal of less than 100 and triglyceride of less than 150 patient not on any cholesterol medication advised to get blood work done as the last 1 is 12/10/2022 (3) Obesity (BMI 30-39.9): Code(s): E66.9 - Obesity, unspecified Plan: Diet and exercise (4) Anemia: Code(s): D64.9 - Anemia, unspecified Qualifiers: Anemia type: unspecified type Qualified Code(s): D64.9 - Anemia, unspecified Plan: Need to follow-up the blood work (5) Hypertension: Code(s): I10 - Essential (primary) hypertension Qualifiers: Hypertension type: primary hypertension Qualified Code(s): I10 - Essential (primary) hypertension Plan: Continue with blood pressure medication. Decrease salt intake and exercise presently on amlodipine 10 mg once a day and hydrochlorothiazide 12.5 mg once a day patient had hyperkalemia with lisinopril (6) Chronic kidney disease: Code(s): N18.9 - Chronic kidney disease, unspecified Qualifiers: Chronic kidney disease stage: stage 3 (moderate) Chronic kidney disease stage 3 subtype: unspecified whether 3a or 3b Qualified Code(s): N18.30 - Chronic kidney disease, stage 3 unspecified Plan: Keep well hydrated avoid NSAIDs patient follows up with Nephrology. Get blood pressure and blood sugar under control (7) Colon cancer screening: Code(s): Z12.11 - Encounter for screening for malignant neoplasm of colon Plan: Patient is reminded about colonoscopy Orders: Orders AMB Hemoglobin A1c Today E11.65 - Type 2 diabetes mellitus with hyperglycemia Complete Blood Count Auto Diff Today E11.65 - Type 2 diabetes mellitus with hyperglycemia Lipid Panel Today E11.65 - Type 2 diabetes mellitus with hyperglycemia, E78.00 - Pure hypercholesterolemia, unspecified Creatinine Urine Today E11.65 - Type 2 diabetes mellitus with hyperglycemia Microalbumin, Random (w Creat) Today E11.65 - Type 2 diabetes mellitus with hyperglycemia Comprehensive Met. Panel Today E11.65 - Type 2 diabetes mellitus with hyperglycemia Free T4 (Free Thyroxine) Today E11.65 - Type 2 diabetes mellitus with hyperglycemia Thyroid Stimulating Hormone Today E11.65 - Type 2 diabetes mellitus with hyperglycemia Vitamin B12 and Folate Today E11.65 - Type 2 diabetes mellitus with hyperglycemia Prostate Specific Antigen Scr Today E11.65 - Type 2 diabetes mellitus with hyperglycemia Td State Immunization Today Z23 - Encounter for immunization Referrals Gastroenterology Referral Z12.11 - Encounter for screening for malignant neoplasm of colon Medications: New empagliflozin (Jardiance) 10 mg PO DAILY 30 tabs 4RF E11.65 - Type 2 diabetes mellitus with hyperglycemia Refilled glipizide ER 5 mg PO BID 180 tabs 2RF 90 days E11.65 - Type 2 diabetes mellitus with hyperglycemia gabapentin 300 mg PO TID 360 caps 0RF E11.40 - Type 2 diabetes mellitus with diabetic neuropathy, unspecified amlodipine 10 mg PO DAILY 90 tabs 1RF I10 - Essential (primary) hypertension metformin 1,000 mg (2 x 500 mg) PO BID 360 tabs 1RF 90 days E11.65 - Type 2 diabetes mellitus with hyperglycemia hydrochlorothiazide 12.5 mg PO DAILY 90 tabs 2RF I10 - Essential (primary) hypertension Coding Level of Care Code Est Pt Level 4 (42036) Complex EM visit Add On G2211 Diagnoses Type 2 diabetes mellitus with hyperglycemia, without long-term current use of insulin E11.65 Diabetes mellitus usp insulin use: without 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
== END 2023-12-20 11:14 | disposition home or self-care (01) ==
PROVIDERS: PCP Internal Medicine; Visit Provider Internal Medicine
DX: Z23 Encounter for immunization (principal); E11.65 Type 2 diabetes mellitus with hyperglycemia; E78.00 Pure hypercholesterolemia, unspecified; I12.9 Hypertensive chronic kidney disease with stage 1 through stage 4 chronic kidney disease, or unspecified chronic kidney disease; N18.30 Chronic kidney disease, stage 3 unspecified
CPT/HCPCS: 83036; 90471; 90714; 99214

== ENCOUNTER 2024-07-14 10:08 | Emergency (ER) | payer OTHER, SELFPAY ==
[2024-07-14 10:54] VITALS: BP 149/82; PULSE 97; RESP 18; TEMP 36.5; O2SAT 99; BMI 32.3
--- NOTE | 2024-07-14 12:12 | ED_ITS ---
HPI - General Adult General Chief complaint: Skin/Abscess/Foreign Body Stated complaint: abscess Time Seen by Provider: 07/14/24 11:51 Source: patient Mode of arrival: ambulatory Limitations: no limitations History of Present Illness ED Provider: Otoniel Mayer HPI narrative: 59-year-old male with past medical history of diabetes, chronic kidney disease, anemia, hypercholesteremia presents to ED for left thigh rash. Patient states for the past couple of days he had tingling sensation and left thigh and then yesterday he noticed a rash with some white bumps that is tingling and slightly painful. Patient denies any recent bites, IV drug use injection, recent antibiotic, fever, or chills. Related Data Previous Rx's ?Medication ?Instructions ?Recorded blood-glucose meter (FreeStyle #1 ea 06/01/20 Lite Meter kit) blood pressure monitor (Blood #1 ea 10/10/22 Pressure Kit) blood pressure monitor (Blood #1 ea 04/11/23 Pressure Kit) amlodipine 10 mg tablet 10 mg PO DAILY #90 tabs 12/20/23 empagliflozin 10 mg tablet 10 mg PO DAILY #30 tabs 12/20/23 (Jardiance) gabapentin 300 mg capsule 300 mg PO TID #360 caps 12/20/23 glipizide 5 mg tablet, extended 5 mg PO BID 90 days #180 tabs 12/20/23 release 24 hr hydrochlorothiazide 12.5 mg tablet 12.5 mg PO DAILY #90 tabs 12/20/23 metformin 500 mg tablet 1,000 mg (2 x 500 mg) PO BID 90 12/20/23 days #360 tabs acetaminophen 325 mg capsule 325 mg PO QID PRN pain 7 days #28 07/14/24 caps valacyclovir 1 gram tablet 1,000 mg PO Q8H 7 days #21 tabs 07/14/24 Allergies Allergy/AdvReac Type Severity Reaction Status Date / Time Sulfa (Sulfonamide Allergy Unknown LIP Verified 07/14/24 10:55 Antibiotics) SWELLING [SULFA (SULFONAMIDE ANTIBIOTICS)] Lisinopril AdvReac Intermediate Hyperkalemi Uncoded 07/14/24 10:55 a Review of Systems 2 Review of Systems: Left thigh rash tingling Yes all other systems are reviewed and are negative PMFSH Past Medical History Medical History Obesity (BMI 30-39.9) Hypercholesterolemia Diabetic neuropathy Type 2 diabetes mellitus with hyperglycemia Surgical History History of cataract surgery Umbilical hernia Family History Family History Father Brain aneurysm Mother No problems noted. Brother No problems noted. Brother No problems noted. Sister No problems noted. Sister No problems noted. Sister Mental illness in member of household Son No problems noted. Son No problems noted. Daughter No problems noted. Other Mental health disorder Social History Social History Housing: House Alcohol intake: current Alcohol intake frequency: holidays/special occasions only Patient Tobacco Use Status: Never used Tobacco e-Cigarette/Vaping Use: Never Used Second Hand Smoke Exposure: No Advance Directives: No Advance Directives Information Provided: Yes service: No Cognitive needs: No Hearing needs: No Vision needs: No Physical Exam ED Vital Signs: Vital Signs - 24 hr 07/14/24 10:54 07/14/24 12:43 Temperature 97.7 F 97.7 F Pulse Rate 97 97 Respiratory Rate 18 18 Blood Pressure 149/82 H 149/82 H Pulse Oximetry 99 99 Oxygen Delivery Method Room Air Room Air BMI result Body Mass Index 32.3 Const General: cooperative, healthy appearing, comfortable, no acute distress, well developed, alert, awake and Physically active Orientation/consciousness: patient oriented x3 HENMT Other: Negative for rash on face or rash in ears Head: Yes normal to inspection, Yes No palpable skull fracture present, Yes normocephalic and Yes atraumatic Ears: hearing grossly normal bilaterally, external ears normal, TM's normal bilaterally, TM normal on the right, TM normal on the left, EAC's normal, mastoids normal and no periauricular adenopathy Throat: Yes posterior oropharynx normal, Yes tonsils normal and Yes uvula midline Eyes General: appearance normal, both eyes and all related structures Neck Neck: Yes normal visual inspection, Yes full ROM, Yes no lymphadenopathy, Yes no meningeal signs, Yes trachea midline, Yes supple, No anterior neck swelling and No tender Chest Chest palpation & inspection: normal inspection of the chest and normal palpation of entire chest wall Resp Effort & Inspection: normal respiratory effort and able to speak in complete sentences Auscultation: clear to auscultation bilaterally Cardio Jugular venous distension: no JVD Heart sounds: S1 normal heart sound present and S2 normal heart sound present GI Inspection: Yes normal to inspection Palpation (GI): Soft to palpation, not firm, nontender, no guarding and not rigid General: Yes no CVA tenderness Back/Spine/Pelvis Back: no CVA tenderness and No back tenderness Skin General skin exam: no rashes or lesions noted, elasticity normal and turgor normal Neuro General: patient oriented x3, gait normal, tone normal, moves all extremities, Normal light touch and pain sensation, no meningeal signs, no focal motor deficits, CN's II-XI intact bilaterally and normal sensation to monofilament Extrem Other: General: Yes normal to inspection, Yes full ROM and Yes capillary refill normal Psych Appearance: grossly normal, well kempt and not disheveled Medical Decision Making Medical Decision Making MDM Narrative: 59 yold female presents tingling rash on left thigh. History physical exam indicate shingles. Not suspecting DVT, osteomyelitis, necrotizing fasciitis, compartment syndrome, abscess, cellulitis. Patient will be treated with antiviral. Patient informed to follow up with primary care provider this week. Patient explained worrisome signs and informed to return to the ED immediately. Differential Diagnosis Differential Diagnoses: The differential diagnosis associated with the presentation includes (Shingles, cellulitis, allergic reaction) Admission/Observation Consideration of admission/observation: Escalation of care including admission/observation considered Independent Historian Clinical information obtained from an independent historian. History obtained from or confirmed by: Other (patient) External Record Review External record reviewed: Other (Prior visits) Prescription Management I considered prescription management with: Antiviral Discharge Plan Discharge Clinical Impression: Shingles Patient Disposition: Home, Self-Care Instructions: Shingles (ED) Additional Instructions: You will need follow-up with your primary care provider. You will be discharged with antiviral. Return to the ED immediately worsening rash, fever, shingles, abdominal pain, nausea, vomiting, rash on face, blurry vision, loss of vision, or any other concerning symptoms. Keep taking gabapentin you having home for pain. Prescriptions: New valacyclovir 1 gram tablet 1,000 mg PO Q8H 7 Days Qty: 21 0RF acetaminophen 325 mg capsule 325 mg PO QID PRN (Reason: pain) 7 Days Qty: 28 0RF No Action (DME) blood-glucose meter [FreeStyle Lite Meter] Kit See Rx Instructions .ROUTE .MEDSUPPLY Qty: 1 0RF Rx Instructions: As directed check the BS QD (DME) blood pressure monitor [Blood Pressure Kit] Kit See Rx Instructions .ROUTE .MEDSUPPLY Qty: 1 0RF Rx Instructions: As directed Jardiance 10 mg tablet 10 mg PO DAILY Qty: 30 4RF metformin 500 mg tablet 1,000 mg PO BID 90 Days Qty: 360 1RF hydrochlorothiazide 12.5 mg tablet 12.5 mg PO DAILY Qty: 90 2RF glipizide 5 mg tablet extended release 24hr 5 mg PO BID 90 Days Qty: 180 2RF gabapentin 300 mg capsule 300 mg PO TID Qty: 360 0RF amlodipine 10 mg tablet 10 mg PO DAILY Qty: 90 1RF (DME) blood pressure monitor [Blood Pressure Kit] Kit See Rx Instructions .ROUTE .MEDSUPPLY Qty: 1 0RF Rx Instructions: As directed Referrals: Ken Sanders MD [Primary Care Provider] - (Ann) Stand Alone Forms: Work/School Release Interventions: ED Discharge Assessment Last Done: 07/14/24 12:43 Discharge Date/Time: 07/14/24 12:51 Print Language: French
[2024-07-14 12:43] VITALS: BP 149/82; PULSE 97; RESP 18; TEMP 36.5; O2SAT 99
== END 2024-07-14 12:51 | disposition home or self-care (01) ==
PROVIDERS: Emergency Provider Emergency Medicine Emergency Medical Services; PCP Internal Medicine
DX: B02.8 Zoster with other complications (principal); M79.605 Pain in left leg; Z79.899 Other long term (current) drug therapy
CPT/HCPCS: 99283

== ENCOUNTER 2024-10-08 10:32 | Outpatient (AMB) | payer OTHER, SELFPAY ==
--- NOTE | 2024-10-08 10:44 | A.OFFPC_ITS ---
Vital Signs 10/08/24 10:45 Height 5 ft 10 in Weight 225 lb BMI 32.3 BP 150/78 H Blood Pressure Location Lt brachial Position Sitting Pulse 81 Pulse Source Pulse Oximeter Pulse Oximetry (%) 98 Oxygen Delivery Method Room Air Intake Visit Reasons: Prescriptions Allergies Sulfa (Sulfonamide Antibiotics) [SULFA (SULFONAMIDE ANTIBIOTICS)] Allergy (Unknown, Verified 10/08/24 10:46) LIP SWELLING Lisinopril Adverse Reaction (Intermediate, Uncoded 10/08/24 10:46) Hyperkalemia Medication List - Last Reconciled 10/08/24 by Ken Sanders MD acetaminophen 325 mg PO QID PRN 7 days amlodipine 10 mg PO DAILY blood pressure monitor (Blood Pressure Kit) As directed blood pressure monitor (Blood Pressure Kit) As directed blood-glucose meter (FreeStyle Lite Meter kit) As directed check the BS QD empagliflozin 25 mg PO DAILY gabapentin 600 mg (2 x 300 mg) PO BID 90 days glipizide ER 5 mg PO BID 90 days hydrochlorothiazide 12.5 mg PO DAILY metformin 1,000 mg (2 x 500 mg) PO BID 90 days Tobacco use date assessed: 10/08/24 Dental Screening Dental Screen Date: 10/08/24 Did you have a dental visit in the last 12 months?: No Did you have a dental problem in the last 6 months where you did not have access to dental care?: No Was dental information given to patient?: Patient has dentist COUNT INCLUDES [facility] Medical History Obesity (BMI 30-39.9) Hypercholesterolemia Diabetic neuropathy Type 2 diabetes mellitus with hyperglycemia Surgical History History of cataract surgery Umbilical hernia Family History Father Brain aneurysm Mother No problems noted. Brother No problems noted. Brother No problems noted. Sister No problems noted. Sister No problems noted. Sister Mental illness in member of household Son No problems noted. Son No problems noted. Daughter No problems noted. Other Mental health disorder Social History Housing: House Alcohol intake: current Alcohol intake frequency: holidays/special occasions only Patient Tobacco Use Status: Never used Tobacco Tobacco use type: Cigarette e-Cigarette/Vaping Use: Never Used Second Hand Smoke Exposure: No service: No Cognitive needs: No Hearing needs: No Vision needs: No Questionnaire PHQ-9 Over the last 2 weeks, how often have you been bothered by any of the following problems? 1. Little interest or pleasure in doing things: not at all 2. Feeling down, depressed, or hopeless: not at all 3. Trouble falling or staying asleep, or sleeping too much: not at all 4. Feeling tired or having little energy: not at all 5. Poor appetite or overeating: not at all 6. Feeling bad about yourself - or that you are a failure or have let yourself or your family down: not at all 7. Trouble concentrating on things, such as reading the newspaper or watching television: not at all 8. Moving or speaking so slowly that other people could have noticed. Or the opposite - being so fidgety or restless that you have been moving around a lot more than usual: not at all 9. Thoughts that you would be better off or of hurting yourself in some way: not at all Total score: 0 Depression Screening Interpretation: Negative Depression Screening Done: Yes 13327 - PHQ-9 Billing: Yes Source: Developed by Drs. Anil Ruby, Lucille Hyatt, Luis Wilkins and colleagues, with an educational yevgeniy from [employer]. Thrive Questionnaire Date Thrive assessed: 10/08/24 I am a: Patient What is your living situation today?: I have a steady place to live Within the past 12 months, did the food you bought not last and you didn't have the money to get more?: Never true Within the past 12 months, did you worry whether your food would run out before you got money to buy more?: Never true Do you have trouble paying for medicines?: No Do you have trouble getting transportation to medical appointments?: No Do you have trouble paying your heating and electricity bill?: No Do you have trouble taking care of your child, family member or friend?: No Do you have trouble with day-to-day activities such as bathing, preparing meals, shopping, managing finances, etc.?: No Are you currently unemployed and looking for a job?: No Are you interested in more education?: No Please select the resources that you would like help with: None Currently or been in a relationship where the following occur: No concerns reported THRIVE Score: 0 AUDIT C Alcohol Use Questionnaire (AUDIT-C) 2. How many drinks containing alcohol do you have on a typical day when you are drinking?: 1 or 2 3. How often do you have six or more drinks on one occasion?: Never Total Score: 0 KERI-7 AMB Questionnaire KERI-7 Date KERI - 7 assessed: 10/08/24 Feeling nervous, anxious, or on edge: 0 = Not at all Not being able to stop or control worryin = Not at all Worrying too much about different things: 0 = Not at all Trouble relaxin = Not at all Being so restless that it is hard to sit still: 0 = Not at all Becoming easily annoyed or irritable: 0 = Not at all Feeling afraid as if something awful might happen: 0 = Not at all Total KERI-7 score (0-4 normal; 5-9 mild; 10-14 moderate; 15-21 severe): 0 Source: Developed by Drs. Anil Ruby, Lucille Hyatt, Luis Wilkins and colleagues, with an educational yevgeniy from [employer]. KERI-7 Assessment Billing KERI-7 Assessment Tool: KERI-7 Assessment 52760 Physical exam (Primary Care) Vital Signs: Last Vital Signs Pulse 81 10/08/24 10:45 BP 150/78 H 10/08/24 10:45 Pulse Ox 98 10/08/24 10:45 Oxygen Delivery Method Room Air 10/08/24 10:45 BMI result Body Mass Index 32.3 Tobacco/Smoking Status: Tobacco use Status Tobacco use date assessed 10/08/24 10/08/24 10:48 Patient Tobacco Use Status Never used Tobacco 10/08/24 10:47 Tobacco use type Cigarette 10/08/24 10:48 e-Cigarette/Vaping Use Never Used 10/08/24 10:47 PHQ-9: PHQ-9 Score PHQ-9: Total score 0 10/08/24 11:34 Depression Screening Interpretation: Negative Thrive Assessment: Date of Thrive Assessment Date Thrive assessed 10/08/24 10/08/24 10:48 Currently or been in a relationship where the following occur: No concerns reported Const General: alert; No acute distress Eyes Conjunctivae: conjunctivae normal Resp Auscultation: clear to auscultation bilaterally Cardio Rate: regular rate Rhythm: regular rhythm GI Inspection: Yes normal to inspection Extrem General: Yes normal to inspection and No edema Office Procedures Flu Questionnaire Does the patient have a severe egg allergy?: No Does the patient have severe life threatening allergies?: No Does the patient have a fever or illness today?: No Has the patient ever had Guillain-Hamlin Syndrome?: No Has the patient ever had any past reaction to a flu shot?: No Results AMB Hemoglobin A1c AMB Hemoglobin A1c 10.4 % Last Edit by Ashley Au CMA on 10/08/24 11:10 Immunizations Fluarix Triv [id number] (PF) 45 mcg (15 mcg x 3)/0.5 mL IM syringe Performing Provider: Ken Sanders MD Performing Location: [facility] [place] [facility] Administered by: Ashley Au CMA on 10/08/24 11:34 Dose Route Admin Location Dispensed Lot Number Expiration Date NDC Complaint Manager 0.5 mL IM Left Deltoid 0.5 mL [id number] 01/20/25 [id number] [email or web address] VIS Given Date VIS Provided VIS Publication Date 10/08/24 Single Vaccine 21 Eligibility Eligibility Date Funding Source Not [facility] Eligible 10/08/24 Private Results Reviewed Results Reviewed: Laboratory Last Values Hgb A1c (Clinic) 10.4 % (4.0-6.0) H 10/08/24 10:48 Coding Level of Care Code Est Pt Level 4 (78126) Complex EM visit Add On G2211 Diagnoses Type 2 diabetes mellitus with hyperglycemia, without long-term current use of insulin E11.65 Diabetes mellitus detention insulin use: without keno terminal operator use Hypercholesterolemia E78.00 Obesity (BMI 30-39.9) E66.9 Primary hypertension I10 Hypertension type: primary hypertension Colon cancer screening Z12.11 Additional Codes KERI-7 Assessment Billing - KERI-7 Assessment Tool: KERI-7 Assessment 86261 ([id number]) PHQ-9 - 23447 - PHQ-9 Billing: Yes ([id number]) Assessment & Plan Assessment & Plan (1) Type 2 diabetes mellitus with hyperglycemia: Comment: Breanna Code(s): E11.65 - Type 2 diabetes mellitus with hyperglycemia Category: Medical Qualifiers: Diabetes mellitus detention insulin use: without keno terminal operator use Qualified Code(s): E11.65 - Type 2 diabetes mellitus with hyperglycemia Plan: Decrease the amount of carbohydrate intake, pasta, bread, rice and potatoes are all sugar and that is aside from all the sweet stuff, remember that fruits are good but they are Sweet also. Hemoglobin A1c goal of less than 6.5. Patient on Jardiance 10 mg once a day glipizide 5 mg twice a day metformin a 1000 mg twice a day. (2) Hypercholesterolemia: Code(s): E78.00 - Pure hypercholesterolemia, unspecified Category: Medical Plan: Cholesterol plan LDL goal of less than 100 and triglyceride of less than 150 patient has not had any blood work done (3) Obesity (BMI 30-39.9): Code(s): E66.9 - Obesity, unspecified Category: Medical Plan: Diet and exercise (4) Hypertension: Code(s): I10 - Essential (primary) hypertension Category: Medical Qualifiers: Hypertension type: primary hypertension Qualified Code(s): I10 - Essen tial (primary) hypertension Plan: Continue with blood pressure medication. Decrease salt intake and exercise on hydrochlorothiazide 12.5 mg once a day and amlodipine 10 mg once a day patient had hyperkalemia with lisinopril. (5) Colon cancer screening: Code(s): Z12.11 - Encounter for screening for malignant neoplasm of colon Category: Medical Plan: Patient is reminded about colonoscopy Plan History of Present Illness The patient is a 59-year-old male presenting with a follow-up for diabetes management and medication refills. He has not had recent blood work, and his last noted Hemoglobin A1c was 10.4%, well above the target of 6.5%. His diabetes management has been challenged by lifestyle habits, specifically poor dietary choices. He reports taking his diabetes medications but has depleted his supply and required refills. In addition to diabetes, he has hypercholesterolemia and chronic kidney disease, neither of which have had recent monitoring through lab tests. He takes hydrochlorothiazide and amlodipine for hypertension and had a history of hyperkalemia when previously on lisinopril. He experienced shingles on his left thigh diagnosed during an ER visit in June. For neuropathic pain, he uses gabapentin at a self-regulated dose of 300 mg taken multiple times daily. Health Maintenance - Discussion and arrangement for colonoscopy due to being overdue for the test - Administration of flu vaccination during this visit - Review of pneumonia and tetanus vaccinations confirmed up to date Social History - Reports eating on the go , indicative of possible fast-food consumption and irregular meal timing Review of Systems - General: Reports no new systemic symptoms - Cardiovascular: Denies any episodes of low blood sugars - Neurological: Reports usage of gabapentin for nerve pain Physical Exam Results - Labs: Hemoglobin A1c reported at 10.4% in previous testing Plan This visit primarily addressed diabetes management. Given elevated Hemoglobin A1c, the plan included adjusting the Jardiance dose to 25 mg, with refills provided for all current medications. Efforts to encourage lifestyle improvemen t, particularly dietary changes, were reinforced alongside fasting blood tests to reassess diabetes and cholesterol control. Hypertension management was maintained with ongoing use of hydrochlorothiazide and amlodipine. Vaccination for influenza was administered, and colonoscopy screening was scheduled due to overdue status. Patient was informed and verbally consented to the use of an ambient scribe for clinic note documentation during this visit. Discussion Notes I discussed the importance of glycemic control due to the elevated Hemoglobin A1c of 10.4%. The adjustment of Jardiance dosage to 25 mg was explained in the context of improving diabetic management. Potential side effects of hypoglycemia, dehydration, and genital infections were reviewed with the patient, but he has reported no hypoglycemic episodes. Blood pressure medications remain the same, and the need for fasting blood tests was emphasized to fully evaluate the current status of diabetes and cholesterol management. We confirmed the flu shot today and renewed the recommendation for a colonoscopy. The patient voiced understanding of the treatment adjustments and timelines for further monitoring and testing. Patient Instructions - Increase Jardiance dosage to 25 mg daily - Refill all prescribed medications, including diabetes and blood pressure medications - Schedule fasting blood tests as soon as possible - Implement healthier eating habits and monitor dietary intake - Receive flu shot today - Follow up for colonoscopy scheduling - Monitor for any symptoms of hypoglycemia or side effects from medication c saray - Return for follow-up appointment as advised Orders: Orders AMB Hemoglobin A1c Today Z13.9 - Encounter for screening, unspecified Influenza [id number] Immunization Today Z23 - Encounter for immunization Referrals Gastroenterology Referral Z12.11 - Encounter for screening for malignant neoplasm of colon Medications: Changed From gabapentin 300 mg PO TID 360 caps 0RF E11.40 - Type 2 diabetes mellitus with diabetic neuropathy, unspecified To gabapentin 600 mg (2 x 300 mg) PO BID 360 caps 0RF 90 days E11.40 - Type 2 diabetes mellitus with diabetic neuropathy, unspecified From empagliflozin (Jardiance) 10 mg PO DAILY 30 tabs 4RF E11.65 - Type 2 diabetes mellitus with hyperglycemia To empagliflozin 25 mg PO DAILY 90 tabs 3RF E11.65 - Type 2 diabetes mellitus with hyperglycemia Refilled glipizide ER 5 mg PO BID 180 tabs 2RF 90 days E11.65 - Type 2 diabetes mellitus with hyperglycemia amlodipine 10 mg PO DAILY 90 tabs 1RF I10 - Essential (primary) hypertension hydrochlorothiazide 12.5 mg PO DAILY 90 tabs 2RF I10 - Essential (primary) hypertension metformin 1,000 mg (2 x 500 mg) PO BID 360 tabs 1RF 90 days E11.65 - Type 2 diabetes mellitus with hyperglycemia Discontinued valacyclovir Discontinued Reason: Patient Completed Course 1,000 mg PO Q8H 7 days 21 tabs 0RF
[2024-10-08 10:45] VITALS: BP 150/78; PULSE 81; O2SAT 98; BMI 32.3
== END 2024-10-08 11:39 | disposition home or self-care (01) ==
LOC: HO.HMCH 10:33
PROVIDERS: PCP Internal Medicine; Visit Provider Internal Medicine
DX: E11.65 Type 2 diabetes mellitus with hyperglycemia (principal); E78.00 Pure hypercholesterolemia, unspecified; E66.9 Obesity, unspecified; Z68.32 Body mass index [BMI] 32.0-32.9, adult; I10 Essential (primary) hypertension; Z12.11 Encounter for screening for malignant neoplasm of colon; Z23 Encounter for immunization

== ENCOUNTER → 2024-10-08 10:32 | Outpatient (BNVA) | payer OTHER, SELFPAY | PROVIDERS: PCP Internal Medicine; Visit Provider Internal Medicine | DX: E11.65 Type 2 diabetes mellitus with hyperglycemia (principal); Z23 Encounter for immunization; E78.00 Pure hypercholesterolemia, unspecified; E66.9 Obesity, unspecified; I10 Essential (primary) hypertension | CPT/HCPCS: 83036; 90471; 90656; 96127 ==

== ENCOUNTER 2025-02-24 16:53 | Emergency (ER) | payer OTHER, SELFPAY ==
--- NOTE | ~2025-02-24 | XR_ITS ---
CLINICAL HISTORY: pain, injury Three views of the left elbow. Findings: There is prominent soft tissue swelling. No acute fractures are seen. There is no dislocation. Impression: No acute fracture is identified. This document has been electronically signed by: Mati Layne MD on 02/24/2025 17:53:18
[2025-02-24 17:02] VITALS: BP 154/73; PULSE 109; RESP 18; TEMP 37.2; O2SAT 96; BMI 33.0
--- NOTE | 2025-02-24 17:04 | ED.GENADULT ---
HPI - General Adult General Chief complaint: Extremity Injury, Upper Stated complaint: swollen right forearm, since monday Time Seen by Provider: 02/24/25 23:42 Source: patient and family Mode of arrival: ambulatory Limitations: no limitations History of Present Illness ED Provider: Dr. Yaima Ocampo HPI narrative: 59-year-old male with extensive past medical history including hypertension, diabetes, CKD and hyperlipidemia presenting with right elbow pain and swelling ongoing for the last 4 days or so. Noticed the pain on Monday of this week after working outdoors. Thought he might have been bit by a bug. Came to the hospital today when the pain became more intense, redness surrounding his elbow more prominent. No reported fever. No nausea or vomiting. Had been feeling well prior to this. Admits that he does not check his blood sugars regularly and has no idea what his blood sugar has been during this course. No specific bugs including ticks were seen on his person. He does not have history of gout. No other joint pain or swelling. Related Data Previous Rx's ?Medication ?Instructions ?Recorded blood-glucose meter (FreeStyle #1 ea 06/01/20 Lite Meter kit) blood pressure monitor (Blood #1 ea 10/10/22 Pressure Kit) blood pressure monitor (Blood #1 ea 04/11/23 Pressure Kit) acetaminophen 325 mg capsule 325 mg PO QID PRN pain 7 days #28 07/14/24 caps amlodipine 10 mg tablet 10 mg PO DAILY #90 tabs 10/08/24 empagliflozin 25 mg tablet 25 mg PO DAILY #90 tabs 10/08/24 gabapentin 300 mg capsule 600 mg (2 x 300 mg) PO BID 90 days 10/08/24 #360 caps glipizide 5 mg tablet, extended 5 mg PO BID 90 days #180 tabs 10/08/24 release 24 hr hydrochlorothiazide 12.5 mg tablet 12.5 mg PO DAILY #90 tabs 10/08/24 metformin 500 mg tablet 1,000 mg (2 x 500 mg) PO BID 90 10/08/24 days #360 tabs cephalexin 500 mg capsule 500 mg PO Q6H 10 days #40 caps 02/25/25 doxycycline monohydrate 100 mg 100 mg PO BID 10 days #20 caps 02/25/25 capsule Allergies Allergy/AdvReac Type Severity Reaction Status Date / Time Sulfa (Sulfonamide Allergy Unknown LIP Verified 02/24/25 17:04 Antibiotics) (SULFA SWELLING (SULFONAMIDE ANTIBIOTICS)) Lisinopril AdvReac Intermediate Hyperkalemi Uncoded 02/24/25 17:04 a Review of Systems Review of Systems: as per HPI, full review of systems performed and negative but for the above mentioned pertinent positives and negatives. [facility] Past Medical History Attestation statement: The following information was validated with the patient. [facility] Narrative: HTN, DM, HLD, CKD Source: old records reviewed Medical History Obesity (BMI 30-39.9) Hypercholesterolemia Diabetic neuropathy Type 2 diabetes mellitus with hyperglycemia Surgical History History of cataract surgery Umbilical hernia Family History Family History Father Brain aneurysm Mother No problems noted. Brother No problems noted. Brother No problems noted. Sister No problems noted. Sister No problems noted. Sister Mental illness in member of household Son No problems noted. Son No problems noted. Daughter No problems noted. Other Mental health disorder Social History Social History Housing: House Alcohol intake: current Alcohol intake frequency: holidays/special occasions only Patient Tobacco Use Status: Never used Tobacco Tobacco use type: Cigarette Smoked in Last 30 Days: No e-Cigarette/Vaping Use: Never Used Second Hand Smoke Exposure: No Use of substances other than those prescribed or required for medical reasons: No Advance Directives: No Advance Directives Information Provided: No service: No Cognitive needs: No Hearing needs: No Vision needs: No Physical Exam ED Exam Exam: GENERAL: Well-Appearing, conversant, no acute distress. SKIN: Normal skin color for ethnicity, warm, dry, cellulitic changes overlying the right elbow extending about retirement up the posterior right arm and into the forearm, no crepitus, no bull's-eye rash, no vesicular lesions or ecchymosis. HEENT:? Normocephalic, atraumatic, no stridor, posterior oropharynx nonerythematous, dentition intact, EOMI. NECK: Soft, supple, full ROM, midline structures nontender, no step-offs, no deformities, no lymphadenopathy. CHEST: Heart regular rate and rhythm, no murmurs, symmetric chest rise and fall. PULMONARY: Clear to auscultation bilaterally, no labored breathing, no wheezes/rhales/rhonchi. ABDOMINAL: Soft, nondistended, nontender, positive bowel sounds in all quadrants. : Deferred. MUSCULOSKELETAL: Normal tone, limited range of motion in the right elbow secondary to pain, able to fully extend the joint, full function of the radial, median and ulnar nerves of the right hand, neurovascularly intact distally, swelling and pain overlying the olecranon bursa, no fluctuance, no peripheral edema. NEURO: Alert and oriented x3, CN II through XII intact, equal strength and sensation bilateral upper and lower extremities, no focal neurologic deficits.? PSYCHIATRIC: Normal affect, fluid speech, good eye contact and appropriate demeanor. Vital Signs: Vital Signs - 24 hr 02/24/25 17:02 02/24/25 22:00 Temperature 99.0 F 99.4 F Pulse Rate 109 H 100 Respiratory Rate 18 16 Blood Pressure 154/73 H 136/80 Pulse Oximetry 96 100 Oxygen Delivery Method Room Air Room Air BMI result Body Mass Index 33.0 Course Course Course Narrative: RME performed by Alise Sarmiento PA-C. Patient is a 59 year old assigned male at presenting to the emergency department with right elbow pain. Patient states a few days ago he was doing yard work and he has been having right elbow pain and swelling ever since. Detailed physical exam and review of systems are deferred to the probation and parole officer. Imaging ordered. Patient placed back in the waiting room pending room availability and results. Medical Decision Making Medical Decision Making MDM Narrative: Patient presents today with chief complaint of possible infection. Differential diagnosis includes abscess, cellulitis, deep space infection such as fasciitis, bone infection, vascular abnormality, among many others. Findings are not consistent with fasciitis specifically with no crepitus, blistering of the skin, pain out of proportion, hemodynamic instability, poor historical factors. Based on physical examination, incision and drainage was not warranted. There is no area of fluctuance, there is extensive cellulitic changes overlying the area. Had an extensive discussion with the patient regarding possibility of septic joint versus superficial skin infection. At this point he has no white blood cell count or fever. No evidence of systemic infection. We will treat as cellulitis and provide with strict return precautions regarding worsening of infection. I have marked his cellulitis with a skin marker. His is aware that she needs to take him back to the hospital if his symptoms do not improve. Using shared decision making, plan for discharge home to follow-up with primary care and/or specialist. Patient understands and agrees with plan for discharge. Discharged home in stable condition. Differential Diagnosis Differential Diagnoses: The differential diagnosis associated with the presentation includes (As above) Admission/Observation Consideration of admission/observation: Escalation of care including admission/observation considered Lab Data [facility] Lab Attestation statement: I reviewed the patient's lab results. 02/24/25 22:21 02/24/25 22:21 Labs: Lab Results 02/24/25 Range/Units 22:21 WBC 9.7 (4.8-10.8) X10*3/uL RBC 4.05 L (4.60-5.80) X10*6/uL Hgb 11.7 L (14.0-18.0) g/dl Hct 35.3 L (42.0-52.0) % MCV 87.2 (80.0-98.0) fL MCH 28.9 (27.0-33.0) pg MCHC 33.1 (31.0-36.0) g/dl RDW 12.9 (11.0-16.0) % Plt Count 211 (160-400) X10*3/uL MPV 9.6 (9.4-12.4) fL Immature Gran % (Auto) 0.3 (0.0-0.4) % Neut % (Auto) 73.5 H (45-73) % Lymph % (Auto) 16.0 L (20-40) % Henderson % (Auto) 8.9 (2-11) % Eos % (Auto) 0.9 (0-4) % Baso % (Auto) 0.4 (0-2) % Lymph # (Auto) 1.6 (1.2-4.9) X10*3/uL Henderson # (Auto) 0.9 (0.1-1.2) X10*3/uL Eos # (Auto) 0.1 (0.0-0.4) X10*3/uL Baso # (Auto) 0.0 (0.0-0.2) X10*3/uL Abs Immat Gran (auto) 0.03 (0.00-0.03) X10*3/uL Absolute Neuts (auto) 7.1 (2.0-8.3) x10*3/uL Absolute Nucleated RBC 0.000 (0.0-0.012) X10*3/uL Nucleated RBC % (auto) 0.0 (0.0-0.2) /100WBC Sodium 141 (135-145) mmol/L Potassium 4.0 (3.3-5.1) mmol/L Chloride 105 (96-108) mmol/L Carbon Dioxide 27 (22-29) mmol/L Anion Gap 13 (12-20) BUN 19 H (9-16) mg/dL Creatinine 1.90 H (0.5-1.4) mg/dL Estim Creat Clear Calc 51.8 Estimated GFR 37 Random Glucose 164 H (60-115) mg/dL Calcium 9.3 (8.4-10.2) mg/dL Total Bilirubin 0.4 (0.0-1.0) mg/dL AST 21 (5-37) U/L ALT 12 (0-40) U/L Alkaline Phosphatase 69 (39-117) U/L Total Protein 8.1 H (6.5-8.0) g/dL Albumin 4.6 (3.5-5.0) g/dL Independent Interpretation I performed an independent interpretation of an: EKG Interpretation: My independent interpretation of the ECG reveals normal sinus rhythm with rate of 85, normal axis, normal intervals, no ST elevations or depressions to suggest ischemic changes, no previous for comparison Radiology Impression Discussion of test interpretation with radiology: I have reviewed the radiologist's reading. Radiologist Impression: Three views of the left elbow. Findings: There is prominent soft tissue swelling. No acute fractures are seen. There is no dislocation. Impression: No acute fracture is identified. This document has been electronically signed by: Mati Layne MD on 02/24/2025 17:53:18 Independent Historian Clinical information obtained from an independent historian. History obtained from or confirmed by: Spouse Prescription Management I considered prescription management with: Antibiotic Chronic Conditions Patient?s care impacted by: Diabetes and Hypertension Discharge Plan Discharge Clinical Impression: Cellulitis of right elbow, Olecranon bursitis of right elbow Patient Disposition: Home, Self-Care Instructions: Cellulitis (ED), Elbow Bursitis (ED) Additional Instructions: Take your antibiotic until the course is completed. Do not stop this medication early if you start to feel better. Return to ER immediately if you see swelling and redness that goes past the markings on your arm, fevers greater than 100?, inability to tolerate your antibiotics, any new symptom that concerns you. Call 911 with any medical emergency. Prescriptions: New doxycycline monohydrate 100 mg capsule 100 mg PO BID 10 Days Qty: 20 0RF cephalexin 500 mg capsule 500 mg PO Q6H 10 Days Qty: 40 0RF No Action acetaminophen 325 mg capsule 325 mg PO QID PRN (Reason: pain) 7 Days Qty: 28 0RF (DME) blood-glucose meter [FreeStyle Lite Meter] Kit See Rx Instructions .ROUTE .MEDSUPPLY Qty: 1 0RF Rx Instructions: As directed check the BS QD (DME) blood pressure monitor [Blood Pressure Kit] Kit See Rx Instructions .ROUTE .MEDSUPPLY Qty: 1 0RF Rx Instructions: As directed (DME) blood pressure monitor [Blood Pressure Kit] Kit See Rx Instructions .ROUTE .MEDSUPPLY Qty: 1 0RF Rx Instructions: As directed amlodipine 10 mg tablet 10 mg PO DAILY Qty: 90 1RF hydrochlorothiazide 12.5 mg tablet 12.5 mg PO DAILY Qty: 90 2RF empagliflozin 25 mg tablet 25 mg PO DAILY Qty: 90 3RF glipizide 5 mg tablet extended release 24hr 5 mg PO BID 90 Days Qty: 180 2RF metformin 500 mg tablet 1,000 mg PO BID 90 Days Qty: 360 1RF gabapentin 300 mg capsule 600 mg PO BID 90 Days Qty: 360 0RF Print Language: Kyrgyz
[2025-02-24 22:00] VITALS: BP 136/80; PULSE 100; RESP 16; TEMP 37.4; O2SAT 100
[2025-02-24 22:30] LABS: MANUAL DIFF FLAG NO
[2025-02-24 22:31] LABS: Hematocrit 35.3 % (42.0-52.0); Hemoglobin 11.7 g/dl (14.0-18.0); Imm Gran Abs Auto 0.03 X10*3/uL (0.00-0.03); Imm Gran Pct Auto 0.3 % (0.0-0.4); Lymphocytes Absolute Auto 1.6 X10*3/uL (1.2-4.9); Mean Corpuscular HGB Conc 33.1 g/dl (31.0-36.0); Mean Corpuscular Hemoglobin 28.9 pg (27.0-33.0); Mean Corpuscular Volume 87.2 fL (80.0-98.0); NRBC Abs Auto 0.000 X10*3/uL (0.0-0.012); NRBC Pct Auto 0.0 /100WBC (0.0-0.2); Platelet Count 211 X10*3/uL (160-400); Red Blood Count 4.05 X10*6/uL (4.60-5.80); White Blood Count 9.7 X10*3/uL (4.8-10.8)
[2025-02-24 22:46] LABS: Alanine Aminotransferase 12 U/L (0-40); Albumin Level 4.6 g/dL (3.5-5.0); Alkaline Phosphatase 69 U/L (39-117); Anion Gap 13 (12-20); Aspartate Amino Transferase 21 U/L (5-37); Blood Urea Nitrogen 19 mg/dL (9-16); Calcium 9.3 mg/dL (8.4-10.2); Carbon Dioxide 27 mmol/L (22-29); Chloride 105 mmol/L (96-108); Creatinine Clr Calc Pharmacy 51.8; Estimated Glomerular Filt Rate 37; Potassium 4.0 mmol/L (3.3-5.1); Sodium 141 mmol/L (135-145); Total Protein 8.1 g/dL (6.5-8.0)
[2025-02-25 01:13] VITALS: BP 140/81; PULSE 96; RESP 16; TEMP 37.1; O2SAT 97
[2025-02-25 02:04] VITALS: BP 140/81; PULSE 96; RESP 16; TEMP 37.1; O2SAT 97
== END 2025-02-25 02:06 | disposition home or self-care (01) ==
PROVIDERS: Emergency Provider Emergency Medicine; PCP Internal Medicine
DX: L03.113 Cellulitis of right upper limb (principal); M70.821 Other soft tissue disorders related to use, overuse and pressure, right upper arm; I12.9 Hypertensive chronic kidney disease with stage 1 through stage 4 chronic kidney disease, or unspecified chronic kidney disease; E11.22 Type 2 diabetes mellitus with diabetic chronic kidney disease; N18.9 Chronic kidney disease, unspecified
CPT/HCPCS: 36415; 73080; 80053; 85025; 99283; 99284

== ENCOUNTER → 2025-02-24 17:04 | Outpatient (BNV) | payer OTHER, SELFPAY | PROVIDERS: PCP Internal Medicine; Visit Provider Radiology Diagnostic Radiology | DX: S59.901A Unspecified injury of right elbow, initial encounter (principal); M25.522 Pain in left elbow | CPT/HCPCS: 73080 ==

== ENCOUNTER 2025-06-20 08:56 | Outpatient (AMB) | payer OTHER, SELFPAY ==
--- OUTSIDE RECORDS SUMMARY | 2025-06-20 08:59 | XMS_ITS | Clinical Summary ---
[facility] Address [address] [place] [address], [place] [address] Care Team Providers Care Business Intelligence Reporting Analyst Name Role Phone Ken Sanders MD Primary Care Provider [phone] Allergies Active Allergy Reactions Criticality Noted Date Comments Sulfa Antibiotics 04/17/2023 Medications glipiZIDE (GLUCOTROL XL) 5 MG 24 hr tablet Take 5 mg by mouth 04/11/2023 Active hydroCHLOROthia zide 12.5 MG tablet 04/16/2023 Active metFORMIN (GLUCOPHAGE) 500 MG tablet Take 1,000 mg by mouth in the morning and 1,000 mg in the evening. 01/15/2023 Active amLODIPine (NORVASC) 10 MG tablet Take 10 mg by mouth 1 (one) time each day 04/11/2023 Active Family History Medical History Relation Comments Brain Aneurysm Father Mental illness Sister Relation Status Comments Father Sister Social History Tobacco Use Types Packs/Day Years Used Date Smoking Tobacco: Former Cigarettes Passive Smoke Exposure: Never Smokeless Tobacco: Never Tobacco Cessation:Counseling Given: No Alcohol Use Standard Drinks/Week Comments Never 0 (1 standard drink = 0.6 oz pur e alcohol) Sex and Gender Information Value Date Recorded Sex Assigned at Not on file Legal Sex Male 10:10 AM EDT Gender Identity Not on file Sexual Orientation Not on file Last Filed Vital Signs Vital Sign Reading Time Taken Comments Blood Pressure 142/79 04/17/2023 10:54 AM EDT Pulse 99 04/17/2023 10:54 AM EDT Temperature - - Respiratory Rate - - Oxygen Saturation 99% 04/17/2023 10:54 AM EDT Inhaled Oxygen Concentration - - Weight 98 kg (216 lb) 04/17/2023 10:54 AM EDT Height - - Body Mass Index - - Plan of Treatment Health Maintenance Due Date Last Done Comments Hepatitis B Vaccine (1 of 3 - 19+ 3-dose series) 03/16 Pneumococcal Vaccine: 50+ Years (1 of 2 - PCV) 986 Colorectal Cancer Screening: Annual FOBT 2016 Colorectal Cancer Screening: Colonoscopy 2016 Colorectal Cancer Screening: Sigmoidoscopy 2016 Influenza Vaccine (#1) 2025 Insurance Aetna Commercial A[employer]na Commercial Care Teams Business Intelligence Reporting Analyst Relationship Specialty Start Date End Date Ken Sanders MD [facility] [address] [place], [place] PCP - General Internal Medicine 04/17/23
[2025-06-20 09:11] VITALS: BP 166/60; PULSE 105; TEMP 37.2; O2SAT 96; BMI 33.0
--- NOTE | 2025-06-20 09:11 | AM.OFFWIN_ITS ---
Intake Vital Signs 06/20/25 09:11 Height 5 ft 10 in Weight 230 lb BMI 33.0 BP 166/60 H Blood Pressure Location Rt brachial Position Sitting Pulse 105 H Pulse Source Pulse Oximeter Temp 98.9 F Temp Source Oral Pulse Oximetry (%) 96 Oxygen Delivery Method Room Air Intake Visit Reasons: EP Left wrist pain Intake Note: pt presents with left wrist pain for 3 days Patient Tobacco Use Status: Never used Tobacco Allergies Sulfa (Sulfonamide Antibiotics) (SULFA (SULFONAMIDE ANTIBIOTICS)) Allergy (Intermediate, Verified 06/20/25 09:17) LIP SWELLING lisinopril Adverse Reaction (Severe, Verified 06/20/25 09:17) hyperkalemia Do you need a note to return to daycare/school/sports/work: No HPI HPI Comments History of Present Illness Details History of Present Illness - The patient is a 60 year old individua l presenting with left wrist pain x 2 days. - The patient reports waking up on morning with left wrist pain, which occurred without any injury. - The pain is severe, limits movement of the wrist, and has gotten slightly better since onset. - The patient's past medical history is significant for diabetes mellitus, diabetic nephropathy, and kidney stones a long time ago. - The patient has no prior history of go ut. - In February, the patient's creatinine cl earance was 51.8. - Regarding diet, the patient ate steak on Monday but does not drink beer. REPLACED BY [facility] Medical History Obesity (BMI 30-39.9) Hypercholesterolemia Diabetic neuropathy Type 2 diabetes mellitus with hyperglycemia Surgical History History of cataract surgery Umbilical hernia Family History Father Brain aneurysm Mother No problems noted. Brother No problems noted. Brother No problems noted. Sister No problems noted. Sister No problems noted. Sister Mental illness in member of household Son No problems noted. Son No problems noted. Daughter No problems noted. Other Mental health disorder Social History Housing: House Alcohol intake: current Alcohol intake frequency: holidays/special occasions only Patient Tobacco Use Status: Never used Tobacco Tobacco use type: Cigarette e-Cigarette/Vaping Use: Never Used Second Hand Smoke Exposure: No service: No Cognitive needs: No Hearing needs: No Vision needs: No Review of Systems Narrative Review of Systems - Musculoskeletal: Reports acute onset of severe pain in the left wrist with limited range of motion. - Constitutional: Denies any preceding injury or trauma to the wrist. - Neurological: Reports intact sensation in the fingers. All systems reviewed and are unremarkable except as noted in HPI Physical Exam Exam Exam: Physical Exam General: Cooperative, healthy appearing, comfortable, no acute distress and well developed Orientation: Patient oriented x3 Limitations: Left wrist pain, unable to move wrist in certain directions Head: Normal to inspection Ears: Hearing grossly normal bilaterally Nose: Normal External nose present Face and sinus: Normal facial exam Eyes: Appearance normal, both eyes and all related structures Neck: Normal visual inspection and Yes full ROM Respiratory: Normal respiratory effort and able to speak in complete sentences. Skin: No rashes or lesions noted Neuro: Patient oriented x3 Extremities: left wrist with limited range of motion, swelling and slight erythema, fingers with normal ROM, no edema and NVI, normal to inspection otherwise Vital Signs: Last Vital Signs Temp 98.9 F 06/20/25 09:11 Pulse 105 H 06/20/25 09:11 BP 166/60 H 06/20/25 09:11 Pulse Ox 96 06/20/25 09:11 Oxygen Delivery Method Room Air 06/20/25 09:11 BMI result Body Mass Index 33.0 Assessment & Plan Assessment & Plan (1) Wrist pain, left: Code(s): M25.532 - Pain in left wrist Plan: Plan Patient was informed and verbally consented to the use of an ambient scribe for clinic note documentation during this visit. 1. Acute Gout, Left Wrist - The acute, non-traumatic onset of severe wrist pain is highly suggestive of gout, especially after the patient consumed steak after not having steak for 10 years. - A serum uric acid level was ordered to help confirm the diagnosis of gout. - Prednisone was considered but deferred due to the patient's history of diabetes and the risk of causing significant hyperglycemia. - Colchicine was prescribed as the preferred treatment. Although it carries risks for the kidneys, a single course was deemed appropriate given the patient's creatinine clearance of 51.8 3 months ago. - The patient was instructed on colchicine dosing: take two pills, then one pill one hour later, followed by one pill every 12 hours on days two and three. - The patient was advised to increase water intake and was educated on [id number] foods to avoid in the future, such as steak, shrimp, and beer. - The prescription for colchicine was sent to the patient's preferred pharmacy. Orders: Orders Uric Acid Today M25.532 - Pain in left wrist Medications: New colchicine On day 1, take 2 tablets followed by 1 tablet 1 hour later. Do not exceed 3 tablets in 24 hours. On day 2 and 3, take 1 tablet every 12 hours. 0.6 mg PO DAILY 7 tabs 0RF Coding Level of Care Code Est Pt Level 3 (72867) Diagnoses Wrist pain, left M25.532
== END 2025-06-20 09:45 | disposition home or self-care (01) ==
PROVIDERS: PCP Internal Medicine; Visit Provider Physician Assistant
DX: M25.532 Pain in left wrist (principal)

== ENCOUNTER 2025-06-20 08:56 | Outpatient (REF) | payer OTHER, SELFPAY ==
--- OUTSIDE RECORDS SUMMARY | 2025-06-20 09:29 | XMS_ITS ---
Author Organization Unknown ENCOUNTERS Encounter Performer Location Date Diagnosis Diagnosis Status Emergency [facility] [address] [place] [address] [id number] TIBURCIO Pre Admit Generic ED Physician [facility] [address] [place] [address] [id number] Emergency [facility] [address] [place] [address] [id number] TIBURCIO Pre Admit Generic ED Physician [facility] [address] [place] [address] [id number] Emergency [facility] [address] [place] [address] [id number] TIBURCIO Pre Admit Generic ED Physician [facility] [address] [place] [address] [id number] Emergency [facility] [address] [place] [address] [id number] TIBURCIO *Note: Encounters from your own facility or health system may be excluded. Allergies, Adverse Reactions, Alerts Allergen Type Severity Identification Date Medications Name Date Quantity Days Supplied GPI Number
[2025-06-20 12:57] LABS: Uric Acid 8.8 mg/dL (3.4-7.0)
== END 2025-06-20 08:57 | disposition home or self-care (01) ==
LOC: HO.HMGCLDS 08:56
PROVIDERS: PCP Internal Medicine; Visit Provider Physician Assistant
DX: M25.532 Pain in left wrist (principal)
CPT/HCPCS: 36415; 84550